=== PATIENT | male | born 1945 | race Caucasian/White ===

== ENCOUNTER 2017-08-06 10:51 | Inpatient (IN) | payer MEDICARE ==
[2017-08-06 11:02] VITALS: BMI 29.9
[2017-08-06] MEDS ORDERED: Iohexol 240 (50 ml) PO ONE (12:31)
[2017-08-06] MEDS ORDERED: Morphine 4 MG/ML VIAL IV ONE (12:31)
[2017-08-06 12:50] LABS: SQUAMOUS EPITHIAL < 1 /hpf (0-5); URINE BILIRUBIN NEGATIVE (NEGATIVE); URINE BLOOD NEGATIVE (NEGATIVE); URINE CLARITY CLEAR (Clear); URINE COLOR YELLOW (YELLOW); URINE GLUCOSE (UA) NEG (Normal); URINE LEUKOCYTE ESTERASE NEG Leu/uL (Negative); URINE NITRATE NEGATIVE (NEGATIVE); URINE PROTEIN NEGATIVE (NEGATIVE); URINE UROBILINOGEN 0.2-1.0 mg/dL (0.2-1.0)
--- NOTE | 2017-08-06 13:06 | ED PDOC ---
HPI: Abdomen Time Seen by Provider: 08/06/17 11:00 Chief Complaint (Nursing): Abdominal Pain Chief Complaint (Provider): Abdominal Pain History Per: Patient History/Exam Limitations: no limitations Onset/Duration Of Symptoms: Days (x 3) Current Symptoms Are (Timing): Still Present Additional Complaint(s): Aniceto is a 72 y/o male who was sent to the ED by Dr. Looney for evaluation of RLQ pain for the past 3 days to rule out appendicitis. Patient denies fever, vomiting, or diarrhea. PMD: Andrei Neri Past Medical History Reviewed: Historical Data, Nursing Documentation, Vital Signs Vital Signs: Last Vital Signs Temp 98.7 F 08/10/17 16:19 Pulse 86 08/10/17 21:04 Resp 20 08/10/17 16:19 BP 138/75 08/10/17 21:04 Pulse Ox 97 08/10/17 16:19 - Medical History PMH: HTN - Surgical History Surgical History: No Surg Hx - Family History Family History: States: Unknown Family Hx - Social History Current smoker - smoking cessation education provided: No Alcohol: None Drugs: Denies - Home Medications Home Medications: Ambulatory Orders Medication Instructions Recorded Aspirin [Ecotrin] 81 mg PO DAILY 08/06/17 Atorvastatin [Lipitor] 40 mg PO HS 08/06/17 Cholecalciferol (Vitamin D3) 2,000 unit PO DAILY 08/06/17 [Vitamin D3] Lisinopril [Zestril] 10 mg PO BID 08/06/17 Magnesium Oxide [Magnesium] 250 mg PO DAILY 08/06/17 Metoprolol Tartrate [Lopressor] 12.5 mg PO Q12 08/06/17 [place]-3 Fatty Acids/Fish Oil 1 cap PO DAILY 08/06/17 [[place]-3 1,000 mg Softgel] Prazosin HCl [Minipress] 1 mg PO HS 08/06/17 Ubidecarenone/Vit E/Vit E Mix 100 mg PO DAILY 08/06/17 [Co-Enzyme Q10 100 mg Softgel] amLODIPine [Norvasc] 5 mg PO DAILY 08/06/17 - Allergies Allergies/Adverse Reactions: Allergies Allergy/AdvReac Type Severity Reaction Status Date / Time No Known Allergies Allergy Verified 08/06/17 11:31 Review of Systems ROS Statement: Except As Marked, All Systems Reviewed And Found Negative Constitutional: Negative for: Fever Gastrointestinal: Positive for: Abdominal Pain (RLQ). Negative for: Vomiting, Diarrhea Physical Exam - Reviewed Nursing Documentation Reviewed: Yes Vital Signs Reviewed: Yes - Physical Exam Appears: Positive for: Well, No Acute Distress Skin: Positive for: Normal Color, Warm, Dry Eye Exam: Positive for: Normal appearance Cardiovascular/Chest: Positive for: Regular Rate, Rhythm. Negative for: Murmur Respiratory: Positive for: Normal Breath Sounds. Negative for: Respiratory Distress Gastrointestinal/Abdominal: Positive for: Soft, Tenderness (RLQ) Extremity: Positive for: Normal ROM. Negative for: Pedal Edema, Deformity Neurologic/Psych: Positive for: Alert, Oriented. Negative for: Motor/Sensory Deficits - Laboratory Results Result Diagrams: 08/10/17 05:20 08/10/17 05:20 - ECG O2 Sat by Pulse Oximetry: 97 (RA) Pulse Ox Interpretation: Normal Medical Decision Making Medical Decision Making: Time: 12:11 Initial Impression: Abdominal pain, rule out appendicitis Initial Plan: --CT Abdomen & Pelvis PO & IV Contrast --CMP --CBC --Morphine --Omnipaque --Urine C&S --Urinalysis Time: 17:30 Patient to be signed out to Dr. Villarreal, pending CT scan. Scribe Attestation: Documented by Fermin Enrique and Cory Colvin, acting as scribes for Ramiro Antonio MD Provider Scribe Attestation: All medical record entries made by the Scribe were at my direction and personally dictated by me. I have reviewed the chart and agree that the record accurately reflects my personal performance of the history, physical exam, medical decision making, and the department course for this patient. I have also personally directed, reviewed, and agree with the discharge instructions and disposition. Disposition - Clinical Impression Clinical Impression: Segmental colitis - Patient ED Disposition Is Patient to be Admitted: Transfer of Care - Disposition Disposition: Transfer of Care Disposition Time: 17:00 Condition: STABLE Patient Signed Over To: Nora Villarreal
[2017-08-06 13:11] LABS: BASO # 0.1 K/uL (0.0-0.2); BASO % 0.5 % (0.0-2.0); EOS # 0.1 K/uL (0.0-0.7); EOS % 0.3 % (0.0-4.0); HEMOGLOBIN 15.1 g/dL (12.0-18.0); LYMPH # 1.7 K/uL (1.0-4.3); LYMPH % 10.2 % (20.0-40.0); MEAN CELL VOLUME 95.4 fl (80.0-94.0); MEAN CORPUSCULAR HGB CONC 33.5 g/dL (33.0-37.0); MEAN PLATELET VOLUME 7.6 fl (7.2-11.7); MONO # 1.4 K/uL (0.0-0.8); MONO % 8.3 % (0.0-10.0); NEUT # 13.2 K/uL (1.8-7.0); NEUT % 80.7 % (50.0-75.0); RBC 4.72 Mil/uL (4.40-5.90); RED CELL DISTRIBUTION WIDTH 14.3 % (11.5-14.5); WHITE BLOOD COUNT 16.3 K/uL (4.8-10.8)
[2017-08-06 13:16] LABS: BLOOD UREA NITROGEN 13 mg/dl (9-20); GFR AFRICAN-AMERICAN > 60; GFR NON-AFRICAN AMERICAN > 60
[2017-08-06 13:17] LABS: ALB/GLOB RATIO 1.3 (1.0-2.1); ALBUMIN 4.6 g/dL (3.5-5.0); ALT/SGPT 36 U/L (21-72); AST/SGOT 33 U/L (17-59); CALCIUM 9.6 mg/dL (8.4-10.2)
[2017-08-06] MEDS ORDERED: Sodium Chloride 0.9% 100 ML ONE (15:15)
[2017-08-06] MEDS ORDERED: Iohexol 300 100 ML IJ ONE (15:15)
[2017-08-06] MEDS ORDERED: Iohexol 240 (50 ml) ONE (15:22)
[2017-08-06] MEDS ORDERED: Morphine 4 MG/ML VIAL ONE (15:23)
[2017-08-06] MEDS ORDERED: Sodium Chloride 0.9% 1,000 ML IV STA (16:57)
--- NOTE | 2017-08-06 17:44 | ED PDOC ---
- Laboratory Results Result Diagrams: 08/06/17 13:00 08/06/17 13:00 - ECG O2 Sat by Pulse Oximetry: 97 (RA) Pulse Ox Interpretation: Normal Medical Decision Making Medical Decision Making: Time: 17:30 Patient was signed out to me by Dr. Antonio, pending CT scan. Accession No. : [id number] Patient Name / ID : KOFFI TEJADA / [id number] Exam Date : 08/06/2017 17:23:43 ( Approved ) Study Comment : Sex / Age : M / 72Y Creator : Kodak Conner MD Dictator : Kodak Conner MD [employer] Attendant : Clerical Supervisor : Kodak Conner MD Approver2 : Report Date : 08/06/2017 18:35:51 My Comment : PROCEDURE: CT Abdomen and Pelvis with contrast HISTORY: rlq abd pain COMPARISON: None. TECHNIQUE: Following the intravenous administration of iodinated contrast material, a CT examination of the abdomen and pelvis performed from the domes of the diaphragms to the symphysis pubis with reformatted datasets provided not only axial but also sagittal and coronal planes. Oral contrast was not administered as per referring physician request. Contrast dose: Omnipaque 300, 95 cc Radiation dose: Total exam DLP = 858.85 mGy-cm. This CT exam was performed using one or more of the following dose reduction techniques: Automated exposure control, adjustment of the mA and/or kV according to patient size, and/or use of iterative reconstruction technique. FINDINGS: LOWER THORAX: Limited bibasilar linear atelectasis or fibrosis seen at the right greater than left sides. No acute infiltrate pleural or pericardial effusion noted. LIVER: There several lucencies identified at the dome of the liver too small to characterize. There are also a few noted at the inferior right lobe liver which are similar. No definite intrahepatic biliary duct dilatation. GALLBLADDER AND BILE DUCTS: Unremarkable. PANCREAS: Unremarkable. No gross lesion or ductal dilatation. SPLEEN: Unremarkable. ADRENALS: Unremarkable. No mass. KIDNEYS AND URETERS: Unremarkable. No hydronephrosis. No solid mass. VASCULATURE: Unremarkable. No aortic aneurysm. BOWEL: The stomach is collapsed. There is no evidence of bowel obstruction and there is nonacute sigmoid diverticular disease. There is prominent thickening of the cecum, particularly posteriorly and the appendix fills with oral contrast material and air relatively diffusely. There is borderline thickening of the terminal ileum as well. Mild fluid is seen the right pericolic gutter. A small perforation or abscess is difficult to differentiate from a moderate diverticulum laterally off the upper cecum. Consider focal colitis of infectious or inflammatory etiologies affecting the cecum asymmetrically, even diverticulitis, with appendicitis on likely. LYMPH NODES: Unremarkable. No enlarged lymph nodes. BLADDER: Urinary bladder appears only mildly distended but the wall appears relatively markedly thickened with borderline pericystic reaction. Center possible cystitis with neoplasm not excluded. No radiodense urolithiasis associated. REPRODUCTIVE: Mild prostate gland enlargement. BONES: No acute fracture. OTHER FINDINGS: None. IMPRESSION: Findings suspicious for segmental colitis affecting the cecum asymmetrically with offending appendicitis felt to be unlikely though some sympathetic thickening of the appendix is difficult to completely exclude. Limited perforation of the upper posterior wall the cecum is in question. Versus moderate diverticulum. No prominent free intraperitoneal gas Neoplasm is not excluded. Further clinical correlation is advised. Additional lesser findings as described above. 18:40 Case discussed with FP resident and oral and maxillofacial surgery resident. Scribe Attestation: Documented by Cory Colvin, acting as a scribe for Nora Villarreal MD Provider Scribe Attestation: All medical record entries made by the Scribe were at my direction and personally dictated by me. I have reviewed the chart and agree that the record accurately reflects my personal performance of the history, physical exam, medical decision making, and the department course for this patient. I have also personally directed, reviewed, and agree with the discharge instructions and disposition. Disposition - Clinical Impression Clinical Impression: Segmental colitis - POA Present On Arrival: None - Disposition Disposition: Admitted as In-Patient Disposition Time: 18:45 Condition: STABLE Forms: [employer] (Spanish)
[2017-08-06] MEDS ORDERED: Ciprofloxacin 400mg/200ml D5W 400 MG/200 ML BAG IV STA (18:34)
[2017-08-06] MEDS ORDERED: metroNIDAZOLE 500mg/100ml NS 100 ML IV STA (18:34)
--- NOTE | 2017-08-06 18:37 | CT ---
PROCEDURE: CT Abdomen and Pelvis with contrast HISTORY: rlq abd pain COMPARISON: None. TECHNIQUE: Following the intravenous administration of iodinated contrast material, a CT examination of the abdomen and pelvis performed from the domes of the diaphragms to the symphysis pubis with reformatted datasets provided not only axial but also sagittal and coronal planes. Oral contrast was not administered as per referring physician request. Contrast dose: Omnipaque 300, 95 cc Radiation dose: Total exam DLP = 858.85 mGy-cm. This CT exam was performed using one or more of the following dose reduction techniques: Automated exposure control, adjustment of the mA and/or kV according to patient size, and/or use of iterative reconstruction technique. FINDINGS: LOWER THORAX: Limited bibasilar linear atelectasis or fibrosis seen at the right greater than left sides. No acute infiltrate pleural or pericardial effusion noted. LIVER: There several lucencies identified at the dome of the liver too small to characterize. There are also a few noted at the inferior right lobe liver which are similar. No definite intrahepatic biliary duct dilatation. GALLBLADDER AND BILE DUCTS: Unremarkable. PANCREAS: Unremarkable. No gross lesion or ductal dilatation. SPLEEN: Unremarkable. ADRENALS: Unremarkable. No mass. KIDNEYS AND URETERS: Unremarkable. No hydronephrosis. No solid mass. VASCULATURE: Unremarkable. No aortic aneurysm. BOWEL: The stomach is collapsed. There is no evidence of bowel obstruction and there is nonacute sigmoid diverticular disease. There is prominent thickening of the cecum, particularly posteriorly and the appendix fills with oral contrast material and air relatively diffusely. There is borderline thickening of the terminal ileum as well. Mild fluid is seen the right pericolic gutter. A small perforation or abscess is difficult to differentiate from a moderate diverticulum laterally off the upper cecum. Consider focal colitis of infectious or inflammatory etiologies affecting the cecum asymmetrically, even diverticulitis, with appendicitis on likely. LYMPH NODES: Unremarkable. No enlarged lymph nodes. BLADDER: Urinary bladder appears only mildly distended but the wall appears relatively markedly thickened with borderline pericystic reaction. Center possible cystitis with neoplasm not excluded. No radiodense urolithiasis associated. REPRODUCTIVE: Mild prostate gland enlargement. BONES: No acute fracture. OTHER FINDINGS: None. IMPRESSION: Findings suspicious for segmental colitis affecting the cecum asymmetrically with offending appendicitis felt to be unlikely though some sympathetic thickening of the appendix is difficult to completely exclude. Limited perforation of the upper posterior wall the cecum is in question. Versus moderate diverticulum. No prominent free intraperitoneal gas Neoplasm is not excluded. Further clinical correlation is advised. Additional lesser findings as described above. Findings discussed with Dr. Villarreal 08/06/2017, 6:20 p.m. with written down and read back verification.
[2017-08-06] MEDS ORDERED: metroNIDAZOLE 500mg/100ml NS 100 ML IVPB ONE (19:33)
[2017-08-06] MEDS ORDERED: Ciprofloxacin 400mg/200ml D5W 400 MG/200 ML BAG IVPB ONE (19:33)
[2017-08-06] MEDS ORDERED: PED IVPB SCH (21:00)
[2017-08-06] MEDS ORDERED: CEFTRIAXONE IVPB SCH (21:00)
[2017-08-06] MEDS: Sodium Chloride 0.9% 1,000 ML IV SCH (21:47)
--- NOTE | 2017-08-06 22:11 | CP.PCM.CON ---
<Philippe Sibley - Last Filed: 08/07/17 04:26> History of Present Illness - History of Present Illness History of Present Illness: General Surgery Consult Note- Dr. Medel 72M w/ pmhx of CAD, [place] s/p cardiac stent, diverticulosis, presents to [facility] ED w / worsening RLQ abdominal pain that started in on Friday. During the course in the ED, pt had a fever of 101, which resolved after Acetaminophen. Currently abd pain is significantly better and is only tender to palpation. Pt denies recent sick contacts for foreign travel. Having regular BM. denies nausea, vomiting, diarrhea, chest pain, shortness of breath, numbness/tingling in extremities, changes in urinary habits, BRBPR PMH: Diverticulosis, CAD, [place] OA, b/l carpal tunnel PSH: shoulder surgery, R-hand surgery, sebaceous cyst removal, C-scope 6yrs ago showing diverticulosis and polyps, cardiac stent ALL: NKDA SocialHx: quit smoking > 40 yrs ago Review of Systems - Review of Systems All systems: reviewed and no additional remarkable complaints except - Constitutional Constitutional: As Per HPI Past Patient History - Infectious Disease Hx of Infectious Diseases: None - Past Social History Alcohol: > 2 Drinks/Day - CARDIAC Hx Hypertension: Yes - PSYCHIATRIC Hx Substance Use: No Meds Allergies/Adverse Reactions: Allergies Allergy/AdvReac Type Severity Reaction Status Date / Time No Known Allergies Allergy Verified 08/06/17 11:31 - Medications Medications: Current Medications Amlodipine Besylate (Norvasc) 5 mg PO DAILY [facility] Aspirin (Ecotrin) 81 mg PO DAILY [facility] Atorvastatin Calcium (Lipitor) 40 mg PO HS [facility] Home Med (Ubidecarenone/Vit E/Vit E Mix [Co-Enzyme Q10 100 Mg Softgel]) 100 mg PO DAILY [facility] Sodium Chloride (Sodium Chloride 0.9%) 1,000 mls @ 125 mls/hr IV .Q8H [facility] Stop: 08/07/17 20:47 Last Admin: 08/06/17 21:47 Dose: 125 mls/hr Ciprofloxacin (Cipro 400mg/200ml Dsw) 400 mg in 200 mls @ 200 mls/hr IVPB Q12 [facility] PRN Reason: Protocol Lisinopril (Zestril) 10 mg PO BID [facility] Last Admin: 08/06/17 21:44 Dose: 10 mg Metoprolol Tartrate (Lopressor) 12.5 mg PO Q12 [facility] Last Admin: 08/06/17 21:43 Dose: 12.5 mg Prazosin HCl (Minipress) 1 mg PO HS [facility] Physical Exam - Constitutional Appears: Non-toxic, No Acute Distress - Head Exam Head Exam: ATRAUMATIC - Eye Exam Eye Exam: EOMI. absent: Scleral icterus - ENT Exam ENT Exam: Mucous Membranes Moist - Respiratory Exam Respiratory Exam: NORMAL BREATHING PATTERN. absent: Accessory Muscle Use, Respiratory Distress - Cardiovascular Exam Cardiovascular Exam: +S1, +S2. absent: Bradycardia, Tachycardia - GI/Abdominal Exam GI & Abdominal Exam: Guarding, Soft, Tenderness. absent: Distended, Firm, Pulsatile Mass, Rebound, Rigid Additional comments: Tenderness in RLQ -McBurny, -Rovsing, -Psoas voluntary guarding - Extremities Exam Additional comments: Lipoma on L. Hand +2 Radial pulses b/L - Neurological Exam Neurological exam: Alert, Oriented x3 - Psychiatric Exam Psychiatric exam: Normal Affect - Skin Skin Exam: Intact, Normal Color, Warm Results - Vital Signs Recent Vital Signs: Last Vital Signs Temp 99.2 F 08/06/17 21:25 Pulse 72 08/06/17 21:44 Resp 16 08/06/17 21:25 BP 128/69 08/06/17 21:44 Pulse Ox 95 08/06/17 21:25 - Labs Result Diagrams: 08/06/17 13:00 08/06/17 13:00 Labs: Laboratory Results - last 24 hr 08/06/17 08/06/17 08/06/17 12:30 13:00 13:00 WBC 16.3 H RBC 4.72 Hgb 15.1 Hct 45.0 MCV 95.4 H MCH 32.0 H MCHC 33.5 RDW 14.3 Plt Count 277 MPV 7.6 Neut % (Auto) 80.7 H Lymph % (Auto) 10.2 L [place] % (Auto) 8.3 Eos % (Auto) 0.3 Baso % (Auto) 0.5 Neut # (Auto) 13.2 H Lymph # (Auto) 1.7 [place] # (Auto) 1.4 H Eos # (Auto) 0.1 Baso # (Auto) 0.1 Sodium 139 Potassium 4.1 Chloride 99 Carbon Dioxide 27 Anion Gap 17 BUN 13 Creatinine 0.8 Est GFR ( Amer) > 60 Est GFR (Non-Af Amer) > 60 Random Glucose 106 Calcium 9.6 Total Bilirubin 1.3 AST 33 ALT 36 Alkaline Phosphatase 73 Total Protein 8.3 H Albumin 4.6 Globulin 3.7 Albumin/Globulin Ratio 1.3 Urine Color Yellow Urine Clarity Clear Urine pH 6.0 Ur Specific Forbes 1.016 Urine Protein Negative Urine Glucose (UA) Neg Urine Ketones Negative Urine Blood Negative Urine Nitrate Negative Urine Bilirubin Negative Urine Urobilinogen 0.2-1.0 Ur Leukocyte Esterase Neg Urine RBC (Auto) 2 Urine Microscopic WBC 1 Ur Squamous Epith Cells < 1 Assessment & Plan - Assessment and Plan (Free Text) Assessment: 72M abd pain for 3 days; cecal diverticulitis vs focal colitis Plan: - NPO - IVF/Abx - Pain control - serial abd exams - monitor vitals - AM CBC/CMP - discussed case w/ Dr. Medel surgical attending [facility] PGY1 <Cristóbal Rm - Last Filed: 08/07/17 10:23> History of Present Illness - History of Present Illness History of Present Illness: Patient was seen and examined at the bedside. Agree with resident's note above. Meds - Medications Medications: Current Medications Amlodipine Besylate (Norvasc) 5 mg PO DAILY [facility] Last Admin: 08/07/17 08:50 Dose: 5 mg Aspirin (Ecotrin) 81 mg PO DAILY [facility] Last Admin: 08/07/17 08:50 Dose: 81 mg Atorvastatin Calcium (Lipitor) 40 mg PO HS [facility] Last Admin: 08/06/17 23:57 Dose: 40 mg Enoxaparin Sodium (Lovenox) 40 mg SC DAILY [facility] PRN Reason: Protocol Last Admin: 08/07/17 08:47 Dose: 40 mg Home Med (Ubidecarenone/Vit E/Vit E Mix [Co-Enzyme Q10 100 Mg Softgel]) 100 mg PO DAILY [facility] Hydromorphone HCl (Dilaudid) 1 mg IVP Q4 PRN PRN Reason: Pain, severe (8-10) Sodium Chloride (Sodium Chloride 0.9%) 1,000 mls @ 125 mls/hr IV .Q8H [facility] Stop: 08/07/17 20:47 Last Admin: 08/06/17 21:47 Dose: 125 mls/hr Metronidazole (Flagyl 500mg/100ml Ns) 100 mls @ 100 mls/hr IVPB Q8 [facility] PRN Reason: Protocol Last Admin: 08/07/17 02:44 Dose: 100 mls/hr Sodium Chloride (Sodium Chloride 0.9%) 1,000 mls @ 150 mls/hr IV .Q6H40M [facility] Stop: 08/08/17 02:28 Last Admin: 08/07/17 08:49 Dose: 150 mls/hr Piperacillin Sod/Tazobactam (Sod 3.375 gm/ Sodium Chloride) 100 mls @ 100 mls/ hr IVPB Q6 [facility] PRN Reason: Protocol Lisinopril (Zestril) 10 mg PO BID [facility] Last Admin: 08/07/17 08:48 Dose: 10 mg Metoprolol Tartrate (Lopressor) 12.5 mg PO Q12 [facility] Last Admin: 08/07/17 08:47 Dose: 12.5 mg Prazosin HCl (Minipress) 1 mg PO HS [facility] Last Admin: 08/06/17 23:57 Dose: 1 mg Results - Vital Signs Recent Vital Signs: Last Vital Signs Temp 99.9 F H 08/07/17 08:39 Pulse 109 H 08/07/17 08:50 Resp 20 08/07/17 08:39 BP 132/57 L 08/07/17 08:50 Pulse Ox 99 08/07/17 08:39 - Labs Result Diagrams: 08/07/17 06:00 08/07/17 06:00 Labs: Laboratory Results - last 24 hr 08/06/17 08/06/17 08/06/17 12:30 13:00 13:00 WBC 16.3 H RBC 4.72 Hgb 15.1 Hct 45.0 MCV 95.4 H MCH 32.0 H MCHC 33.5 RDW 14.3 Plt Count 277 MPV 7.6 Neut % (Auto) 80.7 H Lymph % (Auto) 10.2 L [place] % (Auto) 8.3 Eos % (Auto) 0.3 Baso % (Auto) 0.5 Neut # (Auto) 13.2 H Lymph # (Auto) 1.7 [place] # (Auto) 1.4 H Eos # (Auto) 0.1 Baso # (Auto) 0.1 Sodium 139 Potassium 4.1 Chloride 99 Carbon Dioxide 27 Anion Gap 17 BUN 13 Creatinine 0.8 Est GFR ( Amer) > 60 Est GFR (Non-Af Amer) > 60 Random Glucose 106 Calcium 9.6 Total Bilirubin 1.3 AST 33 ALT 36 Alkaline Phosphatase 73 Total Protein 8.3 H Albumin 4.6 Globulin 3.7 Albumin/Globulin Ratio 1.3 Urine Color Yellow Urine Clarity Clear Urine pH 6.0 Ur Specific [place] 1.016 Urine Protein Negative Urine Glucose (UA) Neg Urine Ketones Negative Urine Blood Negative Urine Nitrate Negative Urine Bilirubin Negative Urine Urobilinogen 0.2-1.0 Ur Leukocyte Esterase Neg Urine RBC (Auto) 2 Urine Microscopic WBC 1 Ur Squamous Epith Cells < 1 08/07/17 08/07/17 06:00 06:00 WBC 16.5 H RBC 4.19 L Hgb 13.5 Hct 40.0 MCV 95.5 H MCH 32.3 H MCHC 33.8 RDW 13.8 Plt Count 238 MPV 7.8 Neut % (Auto) 78.5 H Lymph % (Auto) 10.4 L [place] % (Auto) 10.4 H Eos % (Auto) 0.5 Baso % (Auto) 0.2 Neut # (Auto) 13.0 H Lymph # (Auto) 1.7 [place] # (Auto) 1.7 H Eos # (Auto) 0.1 Baso # (Auto) 0.0 Sodium 139 Potassium 3.9 Chloride 100 Carbon Dioxide 26 Anion Gap 17 BUN 13 Creatinine 0.9 Est GFR ( Amer) > 60 Est GFR (Non-Af Amer) > 60 Random Glucose 101 Calcium 9.0 Total Bilirubin 1.9 H AST 27 ALT 32 Alkaline Phosphatase 62 Total Protein 6.9 Albumin 3.8 Globulin 3.1 Albumin/Globulin Ratio 1.2 Urine Color Urine Clarity Urine pH Ur Specific [place] Urine Protein Urine Glucose (UA) Urine Ketones Urine Blood Urine Nitrate Urine Bilirubin Urine Urobilinogen Ur Leukocyte Esterase Urine RBC (Auto) Urine Microscopic WBC Ur Squamous Epith Cells - Imaging and Cardiology CT scan - abdomen Status: Image reviewed by me, Report reviewed by me Assessment & Plan - Assessment and Plan (Free Text) Plan: - Stop Cipro, start Zosyn - Repeat labs in am - Will follow
--- NOTE | 2017-08-06 22:55 | CP.PCM.HP ---
<Con Akins - Last Filed: 08/07/17 02:36> History of Present Illness - History of Present Illness History of Present Illness: 72 YO w/ PMH of CAD, HTN presents to the ED was sent by his PMD for worsening RLQ abdominal pain that has been going on since Friday. Quantifies the pain at a 7/10. Denies any nausea, vomiting or diarrhea. 2 week ago patient had some abdominal pain with diarrhea, but pain was not as severe as this. Pain is aggravated with walking and palpation. Denies any travel history. Currently patient has been having normal soft stools. Admits to having some chills, but did not check his temperature at home. In the ER patient was noted to be febrile. PMH: Diverticulosis, AL s/p stent 9 years ago PSH: Shoulder surgery, C-scope 6yrs ago showing diverticulosis and polyps Allergies : None SH: 17 year smoking history, quit 25 years ago. Social drinker PMD: Dr. Neri, Senior Test Engineer: Dr. Rice Present on Admission - Present on Admission Any Indicators Present on Admission: No Past Patient History - Infectious Disease Hx of Infectious Diseases: None - Past Social History Alcohol: > 2 Drinks/Day - CARDIAC Hx Hypertension: Yes - PSYCHIATRIC Hx Substance Use: No Meds Allergies/Adverse Reactions: Allergies Allergy/AdvReac Type Severity Reaction Status Date / Time No Known Allergies Allergy Verified 08/06/17 11:31 Physical Exam - Constitutional Appears: No Acute Distress - Head Exam Head Exam: NORMAL INSPECTION - Eye Exam Eye Exam: Normal appearance - Respiratory Exam Respiratory Exam: Clear to Auscultation Bilateral, NORMAL BREATHING PATTERN. absent: Rhonchi, Wheezes - Cardiovascular Exam Cardiovascular Exam: REGULAR RHYTHM, +S1, +S2 - GI/Abdominal Exam GI & Abdominal Exam: Normal Bowel Sounds, Soft, Tenderness Additional comments: RLQ TTP, voluntary guarding - Extremities Exam Extremities exam: Positive for: normal inspection. Negative for: calf tenderness - Neurological Exam Neurological exam: Alert, CN II-XII Intact - Skin Skin Exam: Normal Color, Warm Results - Vital Signs Recent Vital Signs: Last Vital Signs Temp 99.2 F 08/06/17 21:25 Pulse 72 08/06/17 21:44 Resp 16 08/06/17 21:25 BP 128/69 08/06/17 21:44 Pulse Ox 95 08/06/17 21:25 - Labs Result Diagrams: 08/06/17 13:00 08/06/17 13:00 Labs: Laboratory Results - last 24 hr 08/06/17 08/06/17 08/06/17 12:30 13:00 13:00 WBC 16.3 H RBC 4.72 Hgb 15.1 Hct 45.0 MCV 95.4 H MCH 32.0 H MCHC 33.5 RDW 14.3 Plt Count 277 MPV 7.6 Neut % (Auto) 80.7 H Lymph % (Auto) 10.2 L [place] % (Auto) 8.3 Eos % (Auto) 0.3 Baso % (Auto) 0.5 Neut # (Auto) 13.2 H Lymph # (Auto) 1.7 [place] # (Auto) 1.4 H Eos # (Auto) 0.1 Baso # (Auto) 0.1 Sodium 139 Potassium 4.1 Chloride 99 Carbon Dioxide 27 Anion Gap 17 BUN 13 Creatinine 0.8 Est GFR ( Amer) > 60 Est GFR (Non-Af Amer) > 60 Random Glucose 106 Calcium 9.6 Total Bilirubin 1.3 AST 33 ALT 36 Alkaline Phosphatase 73 Total Protein 8.3 H Albumin 4.6 Globulin 3.7 Albumin/Globulin Ratio 1.3 Urine Color Yellow Urine Clarity Clear Urine pH 6.0 Ur Specific [place] 1.016 Urine Protein Negative Urine Glucose (UA) Neg Urine Ketones Negative Urine Blood Negative Urine Nitrate Negative Urine Bilirubin Negative Urine Urobilinogen 0.2-1.0 Ur Leukocyte Esterase Neg Urine RBC (Auto) 2 Urine Microscopic WBC 1 Ur Squamous Epith Cells < 1 Assessment & Plan - Assessment and Plan (Free Text) Assessment: 72 YO M w/ PMH of diverticulosis presents with worsening RLQ abdominal pain 1) Abdominal Pain - sepsis secondary to cecal diverticulitis vs colitis - WBC: 16.3, febrile - CT: Most likely secondary to cecal diverticulitis vs colitis. No evidence of appendicitis - Surg consult appreciated - NPO - C/W IV antibiotics, IVF and pain control with meds - F/U with urine culture 2) HTN - C/W with pain meds -3) DVT prophylaxis - Lovenox <Leonardo Nerio A - Last Filed: 08/08/17 06:55> Results - Vital Signs Recent Vital Signs: Last Vital Signs Temp 100 F H 08/08/17 00:19 Pulse 64 08/08/17 00:19 Resp 18 08/08/17 00:19 BP 127/49 L 08/08/17 00:19 Pulse Ox 95 08/08/17 00:19 - Labs Result Diagrams: 08/07/17 06:00 08/08/17 05:00 Labs: Laboratory Results - last 24 hr 08/07/17 08/07/17 08/07/17 06:00 06:00 06:00 WBC 16.5 H RBC 4.19 L Hgb 13.5 Hct 40.0 MCV 95.5 H MCH 32.3 H MCHC 33.8 RDW 13.8 Plt Count 238 MPV 7.8 Neut % (Auto) 78.5 H Lymph % (Auto) 10.4 L [place] % (Auto) 10.4 H Eos % (Auto) 0.5 Baso % (Auto) 0.2 Neut # (Auto) 13.0 H Lymph # (Auto) 1.7 [place] # (Auto) 1.7 H Eos # (Auto) 0.1 Baso # (Auto) 0.0 Sodium 139 Potassium 3.9 Chloride 100 Carbon Dioxide 26 Anion Gap 17 BUN 13 Creatinine 0.9 Est GFR ( Amer) > 60 Est GFR (Non-Af Amer) > 60 Random Glucose 101 Calcium 9.0 Total Bilirubin 1.9 H AST 27 ALT 32 Alkaline Phosphatase 62 Total Protein 6.9 Albumin 3.8 Globulin 3.1 Albumin/Globulin Ratio 1.2 Procalcitonin 0.48 08/08/17 05:00 WBC RBC Hgb Hct MCV MCH MCHC RDW Plt Count MPV Neut % (Auto) Lymph % (Auto) [place] % (Auto) Eos % (Auto) Baso % (Auto) Neut # (Auto) Lymph # (Auto) [place] # (Auto) Eos # (Auto) Baso # (Auto) Sodium 138 Potassium 4.5 Chloride 103 Carbon Dioxide 27 Anion Gap 13 BUN 10 Creatinine 1.0 Est GFR ( Amer) > 60 Est GFR (Non-Af Amer) > 60 Random Glucose 110 Calcium 8.7 Total Bilirubin 1.4 H AST 25 ALT 21 D Alkaline Phosphatase 50 Total Protein 6.3 Albumin 3.2 L Globulin 3.1 Albumin/Globulin Ratio 1.0 Procalcitonin Attending/Attestation - Attestation I have personally seen and examined this patient.: Yes I have fully participated in the care of the patient.: Yes I have reviewed all pertinent clinical information: Yes
[2017-08-07] MEDS ORDERED: metroNIDAZOLE 500mg/100ml NS 100 ML IVPB ONE (02:40)
[2017-08-07] MEDS: Sodium Chloride 0.9% 1,000 ML IV SCH ×4 (02:44→17:52)
[2017-08-07] MEDS: metroNIDAZOLE 500mg/100ml NS 100 ML IVPB SCH ×3 (02:44→17:49)
[2017-08-07 07:30] LABS: BASO % 0.2 % (0.0-2.0); EOS # 0.1 K/uL (0.0-0.7); EOS % 0.5 % (0.0-4.0); HEMOGLOBIN 13.5 g/dL (12.0-18.0); LYMPH # 1.7 K/uL (1.0-4.3); LYMPH % 10.4 % (20.0-40.0); MEAN CELL VOLUME 95.5 fl (80.0-94.0); MEAN CORPUSCULAR HEMOGLOBIN 32.3 pg (27.0-31.0); MEAN CORPUSCULAR HGB CONC 33.8 g/dL (33.0-37.0); MEAN PLATELET VOLUME 7.8 fl (7.2-11.7); MONO # 1.7 K/uL (0.0-0.8); MONO % 10.4 % (0.0-10.0); NEUT % 78.5 % (50.0-75.0); RBC 4.19 Mil/uL (4.40-5.90); RED CELL DISTRIBUTION WIDTH 13.8 % (11.5-14.5); WHITE BLOOD COUNT 16.5 K/uL (4.8-10.8)
[2017-08-07 07:42] LABS: ALBUMIN 3.8 g/dL (3.5-5.0); BLOOD UREA NITROGEN 13 mg/dl (9-20); GFR AFRICAN-AMERICAN > 60; GFR NON-AFRICAN AMERICAN > 60
[2017-08-07 07:43] LABS: ALB/GLOB RATIO 1.2 (1.0-2.1); ALT/SGPT 32 U/L (21-72); AST/SGOT 27 U/L (17-59)
[2017-08-07] MEDS: Enoxaparin 40 mg Syringe SC SCH (08:47)
[2017-08-07] MEDS ORDERED: VIT E PO SCH (09:00)
[2017-08-07] MEDS ORDERED: VIT E MIX PO SCH (09:00)
[2017-08-07] MEDS ORDERED: UBIDECARENONE PO SCH (09:00)
[2017-08-07] MEDS ORDERED: Ciprofloxacin 400mg/200ml D5W 400 MG/200 ML BAG IVPB SCH (09:00)
--- NOTE | 2017-08-07 09:20 | RAD ---
HISTORY: fever COMPARISON: No prior. FINDINGS: LUNGS: No active pulmonary disease. PLEURA: No significant pleural effusion identified, no pneumothorax apparent. CARDIOVASCULAR: Atherosclerotic aortic calcifications. Cardiomediastinal silhouette within normal limits. OSSEOUS STRUCTURES: Degenerative changes. VISUALIZED UPPER ABDOMEN: Retained enteric contrast preceding CT scan of the abdomen pelvis. OTHER FINDINGS: None. IMPRESSION: No active disease.
--- NOTE | 2017-08-07 09:54 | CP.PCM.PN ---
<Jim Cuellar - Last Filed: 08/07/17 17:19> Subjective - Date & Time of Evaluation Date of Evaluation: 08/07/17 Time of Evaluation: 07:25 - Subjective Subjective: The patient was seen and examined this morning bedside. There are no acute events overnight, NAD. The patient reports that he still has RLQ pain but denies nausea, vomiting, diarrhea, or any other complaints. The patient was seen by surgery team. Patient remains NPO Objective - Vital Signs/Intake and Output Vital Signs (last 24 hours): Temp Pulse Resp BP Pulse Ox 99.9 F H 109 H 20 132/57 L 99 08/07/17 08:39 08/07/17 08:50 08/07/17 08:39 08/07/17 08:50 08/07/17 08:39 - Medications Medications: Current Medications Amlodipine Besylate (Norvasc) 5 mg PO DAILY [facility] Last Admin: 08/07/17 08:50 Dose: 5 mg Aspirin (Ecotrin) 81 mg PO DAILY [facility] Last Admin: 08/07/17 08:50 Dose: 81 mg Atorvastatin Calcium (Lipitor) 40 mg PO HS [facility] Last Admin: 08/06/17 23:57 Dose: 40 mg Enoxaparin Sodium (Lovenox) 40 mg SC DAILY [facility] PRN Reason: Protocol Last Admin: 08/07/17 08:47 Dose: 40 mg Home Med (Ubidecarenone/Vit E/Vit E Mix [Co-Enzyme Q10 100 Mg Softgel]) 100 mg PO DAILY [facility] Hydromorphone HCl (Dilaudid) 1 mg IVP Q4 PRN PRN Reason: Pain, severe (8-10) Sodium Chloride (Sodium Chloride 0.9%) 1,000 mls @ 125 mls/hr IV .Q8H [facility] Stop: 08/07/17 20:47 Last Admin: 08/06/17 21:47 Dose: 125 mls/hr Ciprofloxacin (Cipro 400mg/200ml Dsw) 400 mg in 200 mls @ 200 mls/hr IVPB Q12 [facility] PRN Reason: Protocol Metronidazole (Flagyl 500mg/100ml Ns) 100 mls @ 100 mls/hr IVPB Q8 [facility] PRN Reason: Protocol Last Admin: 08/07/17 02:44 Dose: 100 mls/hr Sodium Chloride (Sodium Chloride 0.9%) 1,000 mls @ 150 mls/hr IV .Q6H40M [facility] Stop: 08/08/17 02:28 Last Admin: 08/07/17 08:49 Dose: 150 mls/hr Lisinopril (Zestril) 10 mg PO BID [facility] Last Admin: 08/07/17 08:48 Dose: 10 mg Metoprolol Tartrate (Lopressor) 12.5 mg PO Q12 [facility] Last Admin: 08/07/17 08:47 Dose: 12.5 mg Prazosin HCl (Minipress) 1 mg PO HS [facility] Last Admin: 08/06/17 23:57 Dose: 1 mg - Labs Labs: 08/07/17 06:00 08/07/17 06:00 - Constitutional Appears: No Acute Distress - Head Exam Head Exam: ATRAUMATIC, NORMAL INSPECTION, NORMOCEPHALIC - Eye Exam Eye Exam: Normal appearance - ENT Exam ENT Exam: Mucous Membranes Moist - Neck Exam Neck Exam: Full ROM. absent: Tenderness - Respiratory Exam Respiratory Exam: Clear to Ausculation Bilateral, NORMAL BREATHING PATTERN. absent: Decreased Breath Sounds, Rales, Rhonchi, Wheezes, Respiratory Distress - Cardiovascular Exam Cardiovascular Exam: REGULAR RHYTHM. absent: Tachycardia - GI/Abdominal Exam GI & Abdominal Exam: Guarding, Soft, Tenderness, Normal Bowel Sounds. absent: Distended, Rebound Additional comments: voluntary guarding - Extremities Exam Extremities Exam: absent: Calf Tenderness, Pedal Edema, Tenderness - Back Exam Back Exam: absent: CVA tenderness (L), CVA tenderness (R), rash noted - Neurological Exam Neurological Exam: Alert, Awake, Oriented x3 - Skin Skin Exam: Dry Assessment and Plan - Assessment and Plan (Free Text) Assessment: 72 y/o man w/ pmh of diverticulosis, HTN, CAD s/p stent 9 years ago presents with worsening RLQ abdominal pain Plan: 1. Abdominal Pain - cecal diverticulitis vs. segmental colitis - currently afebrile, WBC 16.5 - CT: Most likely secondary to cecal diverticulitis vs colitis. No evidence of appendicitis - Surgery consulted, Dr. Jim Medel, recommendations appreciated - GI consulted, Dr. Darrel Jenkins - NPO - zosyn 3.375 gm IV Q6h day 0 - metronidazole 500 mg Q8h day 1 - urine culture: no growth - f/u blood culture - f/u CBC, CMP 2. HTN - controlled w/ medication - c/w norvasc 5 mg PO daily, ASA 81 mg PO daily, lisinopril 10 mg PO daily, metoprolol tartrate 12.5 mg PO Q12h, prazosin 1 mg PO HS 3. HLD - c/w atorvastatin 40 mg PO daily 4. DVT prophylaxis - Lovenox <Andrei Rivas - Last Filed: 08/08/17 07:04> Objective - Vital Signs/Intake and Output Vital Signs (last 24 hours): Temp Pulse Resp BP Pulse Ox 100 F H 64 18 127/49 L 95 08/08/17 00:19 08/08/17 00:19 08/08/17 00:19 08/08/17 00:19 08/08/17 00:19 - Medications Medications: Current Medications Amlodipine Besylate (Norvasc) 5 mg PO DAILY [facility] Last Admin: 08/07/17 08:50 Dose: 5 mg Aspirin (Ecotrin) 81 mg PO DAILY [facility] Last Admin: 08/07/17 08:50 Dose: 81 mg Atorvastatin Calcium (Lipitor) 40 mg PO HS [facility] Last Admin: 08/07/17 21:09 Dose: 40 mg Enoxaparin Sodium (Lovenox) 40 mg SC DAILY [facility] PRN Reason: Protocol Last Admin: 08/07/17 08:47 Dose: 40 mg Home Med (Ubidecarenone/Vit E/Vit E Mix [Co-Enzyme Q10 100 Mg Softgel]) 100 mg PO DAILY [facility] Hydromorphone HCl (Dilaudid) 1 mg IVP Q4 PRN PRN Reason: Pain, severe (8-10) Metronidazole (Flagyl 500mg/100ml Ns) 100 mls @ 100 mls/hr IVPB Q8 [facility] PRN Reason: Protocol Last Admin: 08/08/17 00:04 Dose: 100 mls/hr Piperacillin Sod/Tazobactam (Sod 3.375 gm/ Sodium Chloride) 100 mls @ 100 mls/ hr IVPB Q6 [facility] PRN Reason: Protocol Last Admin: 08/08/17 04:22 Dose: 100 mls/hr Lisinopril (Zestril) 10 mg PO BID [facility] Last Admin: 08/07/17 17:54 Dose: 10 mg Metoprolol Tartrate (Lopressor) 12.5 mg PO Q12 [facility] Last Admin: 08/07/17 21:08 Dose: 12.5 mg Prazosin HCl (Minipress) 1 mg PO HS [facility] Last Admin: 08/07/17 21:09 Dose: 1 mg - Labs Labs: 08/08/17 05:00 08/08/17 05:00 Attending/Attestation - Attestation I have personally seen and examined this patient.: Yes I have fully participated in the care of the patient.: Yes I have reviewed all pertinent clinical information, including history, physical exam and plan: Yes
[2017-08-07] MEDS: Piperacillin/Tazobact 3.375 GM in Sodium Chloride 0.9% 100 ML IVPB SCH ×3 (12:45→21:07)
[2017-08-08] MEDS: metroNIDAZOLE 500mg/100ml NS 100 ML IVPB SCH ×3 (00:04→18:05)
[2017-08-08] MEDS: Sodium Chloride 0.9% 1,000 ML IV SCH ×2 (00:04→21:36)
[2017-08-08] MEDS: Piperacillin/Tazobact 3.375 GM in Sodium Chloride 0.9% 100 ML IVPB SCH ×4 (04:22→21:30)
[2017-08-08 06:43] LABS: BASO % 0.1 % (0.0-2.0); EOS # 0.1 K/uL (0.0-0.7); EOS % 0.4 % (0.0-4.0); HEMOGLOBIN 12.3 g/dL (12.0-18.0); LYMPH # 1.8 K/uL (1.0-4.3); LYMPH % 12.6 % (20.0-40.0); MEAN CELL VOLUME 94.8 fl (80.0-94.0); MEAN CORPUSCULAR HGB CONC 33.8 g/dL (33.0-37.0); MEAN PLATELET VOLUME 7.9 fl (7.2-11.7); MONO # 1.3 K/uL (0.0-0.8); MONO % 9.1 % (0.0-10.0); NEUT # 11.2 K/uL (1.8-7.0); NEUT % 77.8 % (50.0-75.0); NRBC % 0.1 % (0.0-0.0); RBC 3.83 Mil/uL (4.40-5.90); RED CELL DISTRIBUTION WIDTH 14.1 % (11.5-14.5); WHITE BLOOD COUNT 14.4 K/uL (4.8-10.8)
[2017-08-08 06:46] LABS: ALBUMIN 3.2 g/dL (3.5-5.0); ALT/SGPT 21 U/L (21-72); AST/SGOT 25 U/L (17-59); BLOOD UREA NITROGEN 10 mg/dl (9-20); CALCIUM 8.7 mg/dL (8.4-10.2); GFR AFRICAN-AMERICAN > 60; GFR NON-AFRICAN AMERICAN > 60
--- NOTE | 2017-08-08 07:48 | CP.PCM.PN ---
<LeftyTarah - Last Filed: 08/08/17 08:05> Subjective - Date & Time of Evaluation Date of Evaluation: 08/08/17 Time of Evaluation: 07:47 - Subjective Subjective: General Surgery Progress Note - Dr. Rm Pt seen and examined at bedside. ALESSANDRA. Admits to one liquid bowel movement overnight. Says he is not getting much sleep as he is uncomfortable in bed and it makes his neck sore. Admits to some ambulation yesterday. States his pain has decreased since yesterday. Denies C/N/V/CP/SOB. Admits to mild fever of 100 early this morning. Objective - Vital Signs/Intake and Output Vital Signs (last 24 hours): Temp Pulse Resp BP Pulse Ox 100 F H 64 18 127/49 L 95 08/08/17 00:19 08/08/17 00:19 08/08/17 00:19 08/08/17 00:19 08/08/17 00:19 - Medications Medications: Current Medications Amlodipine Besylate (Norvasc) 5 mg PO DAILY [facility] Last Admin: 08/07/17 08:50 Dose: 5 mg Aspirin (Ecotrin) 81 mg PO DAILY [facility] Last Admin: 08/07/17 08:50 Dose: 81 mg Atorvastatin Calcium (Lipitor) 40 mg PO HS [facility] Last Admin: 08/07/17 21:09 Dose: 40 mg Enoxaparin Sodium (Lovenox) 40 mg SC DAILY [facility] PRN Reason: Protocol Last Admin: 08/07/17 08:47 Dose: 40 mg Home Med (Ubidecarenone/Vit E/Vit E Mix [Co-Enzyme Q10 100 Mg Softgel]) 100 mg PO DAILY [facility] Hydromorphone HCl (Dilaudid) 1 mg IVP Q4 PRN PRN Reason: Pain, severe (8-10) Metronidazole (Flagyl 500mg/100ml Ns) 100 mls @ 100 mls/hr IVPB Q8 [facility] PRN Reason: Protocol Last Admin: 08/08/17 00:04 Dose: 100 mls/hr Piperacillin Sod/Tazobactam (Sod 3.375 gm/ Sodium Chloride) 100 mls @ 100 mls/ hr IVPB Q6 [facility] PRN Reason: Protocol Last Admin: 08/08/17 04:22 Dose: 100 mls/hr Lisinopril (Zestril) 10 mg PO BID [facility] Last Admin: 08/07/17 17:54 Dose: 10 mg Metoprolol Tartrate (Lopressor) 12.5 mg PO Q12 [facility] Last Admin: 08/07/17 21:08 Dose: 12.5 mg Prazosin HCl (Minipress) 1 mg PO HS [facility] Last Admin: 08/07/17 21:09 Dose: 1 mg - Labs Labs: 08/08/17 05:00 08/08/17 05:00 - Constitutional Appears: Well, Non-toxic, No Acute Distress - Head Exam Head Exam: ATRAUMATIC, NORMAL INSPECTION - Respiratory Exam Respiratory Exam: NORMAL BREATHING PATTERN. absent: Wheezes, Respiratory Distress - GI/Abdominal Exam GI & Abdominal Exam: Distended, Tenderness, Normal Bowel Sounds. absent: Hernia , Mass, Rebound Additional comments: minimal distention RLQ tenderness to palpation, voluntary guarding - Extremities Exam Extremities Exam: Normal Inspection Additional comments: left hand lipoma - Neurological Exam Neurological Exam: Alert, Awake, Oriented x3 - Psychiatric Exam Psychiatric exam: Normal Affect, Normal Mood - Skin Skin Exam: Dry, Intact Assessment and Plan - Assessment and Plan (Free Text) Assessment: 72M with abdominal pain x4 days w/ cecal diverticulitis vs focal colitis Plan: - continue NPO - continue IVF/Abx - continue pain control - monitor vitals, CBC, CMP - discussed case w/ Dr. Rm <Cristóbal Rm - Last Filed: 08/08/17 12:43> Subjective - Date & Time of Evaluation Time of Evaluation: 12:15 - Subjective Subjective: Patient was seen and examined at the bedside. Agree with resident's note above. Objective - Vital Signs/Intake and Output Vital Signs (last 24 hours): Temp Pulse Resp BP Pulse Ox 98.5 F 67 18 137/54 L 94 L 08/08/17 08:03 08/08/17 08:41 08/08/17 08:03 08/08/17 08:41 08/08/17 08:03 - Medications Medications: Current Medications Acetaminophen (Tylenol 325mg Tab) 650 mg PO Q6 PRN PRN Reason: Pain, Mild (1-3) Last Admin: 08/08/17 10:41 Dose: 650 mg Amlodipine Besylate (Norvasc) 5 mg PO DAILY [facility] Last Admin: 08/08/17 08:42 Dose: 5 mg Aspirin (Ecotrin) 81 mg PO DAILY [facility] Last Admin: 08/08/17 08:42 Dose: 81 mg Atorvastatin Calcium (Lipitor) 40 mg PO HS [facility] Last Admin: 08/07/17 21:09 Dose: 40 mg Enoxaparin Sodium (Lovenox) 40 mg SC DAILY [facility] PRN Reason: Protocol Last Admin: 08/08/17 08:42 Dose: 40 mg Home Med (Ubidecarenone/Vit E/Vit E Mix [Co-Enzyme Q10 100 Mg Softgel]) 100 mg PO DAILY [facility] Hydromorphone HCl (Dilaudid) 1 mg IVP Q4 PRN PRN Reason: Pain, severe (8-10) Metronidazole (Flagyl 500mg/100ml Ns) 100 mls @ 100 mls/hr IVPB Q8 [facility] PRN Reason: Protocol Last Admin: 08/08/17 08:42 Dose: 100 mls/hr Piperacillin Sod/Tazobactam (Sod 3.375 gm/ Sodium Chloride) 100 mls @ 100 mls/ hr IVPB Q6 [facility] PRN Reason: Protocol Last Admin: 08/08/17 10:00 Dose: 100 mls/hr Lisinopril (Zestril) 10 mg PO BID [facility] Last Admin: 08/08/17 08:42 Dose: 10 mg Metoprolol Tartrate (Lopressor) 12.5 mg PO Q12 [facility] Last Admin: 08/08/17 08:41 Dose: 12.5 mg Prazosin HCl (Minipress) 1 mg PO HS [facility] Last Admin: 08/07/17 21:09 Dose: 1 mg - Labs Labs: 08/08/17 05:00 08/08/17 05:00 Assessment and Plan - Assessment and Plan (Free Text) Plan: - Start clear liquid diet - IV fluids - Pain control - Continue antibiotics - GI follow up - Repeat labs in am - Out of bed and ambulate - Will follow
[2017-08-08] MEDS: Enoxaparin 40 mg Syringe SC SCH (08:42)
--- NOTE | 2017-08-08 08:59 | CP.PCM.PN ---
<Jim Cuellar - Last Filed: 08/08/17 16:30> Subjective - Date & Time of Evaluation Date of Evaluation: 08/08/17 Time of Evaluation: 07:00 - Subjective Subjective: The patient was seen and examined this morning bedside. There are no acute events overnight, NAD. The patient reports that he still has RLQ pain but denies nausea, vomiting, diarrhea, or any other complaints. The patient was seen by surgery team. Patient had trial of liquid diet and tolerated w/o issue. Objective - Vital Signs/Intake and Output Vital Signs (last 24 hours): Temp Pulse Resp BP Pulse Ox 98.5 F 67 18 137/54 L 94 L 08/08/17 08:03 08/08/17 08:41 08/08/17 08:03 08/08/17 08:41 08/08/17 08:03 - Medications Medications: Current Medications Amlodipine Besylate (Norvasc) 5 mg PO DAILY [facility] Last Admin: 08/08/17 08:42 Dose: 5 mg Aspirin (Ecotrin) 81 mg PO DAILY [facility] Last Admin: 08/08/17 08:42 Dose: 81 mg Atorvastatin Calcium (Lipitor) 40 mg PO HS [facility] Last Admin: 08/07/17 21:09 Dose: 40 mg Enoxaparin Sodium (Lovenox) 40 mg SC DAILY [facility] PRN Reason: Protocol Last Admin: 08/08/17 08:42 Dose: 40 mg Home Med (Ubidecarenone/Vit E/Vit E Mix [Co-Enzyme Q10 100 Mg Softgel]) 100 mg PO DAILY [facility] Hydromorphone HCl (Dilaudid) 1 mg IVP Q4 PRN PRN Reason: Pain, severe (8-10) Metronidazole (Flagyl 500mg/100ml Ns) 100 mls @ 100 mls/hr IVPB Q8 [facility] PRN Reason: Protocol Last Admin: 08/08/17 08:42 Dose: 100 mls/hr Piperacillin Sod/Tazobactam (Sod 3.375 gm/ Sodium Chloride) 100 mls @ 100 mls/ hr IVPB Q6 [facility] PRN Reason: Protocol Last Admin: 08/08/17 04:22 Dose: 100 mls/hr Lisinopril (Zestril) 10 mg PO BID [facility] Last Admin: 08/08/17 08:42 Dose: 10 mg Metoprolol Tartrate (Lopressor) 12.5 mg PO Q12 [facility] Last Admin: 08/08/17 08:41 Dose: 12.5 mg Prazosin HCl (Minipress) 1 mg PO HS [facility] Last Admin: 08/07/17 21:09 Dose: 1 mg - Labs Labs: 08/08/17 05:00 08/08/17 05:00 - Constitutional Appears: Non-toxic, No Acute Distress - Head Exam Head Exam: ATRAUMATIC, NORMAL INSPECTION, NORMOCEPHALIC - Eye Exam Eye Exam: Normal appearance - ENT Exam ENT Exam: Mucous Membranes Moist - Neck Exam Neck Exam: Full ROM. absent: Tenderness - Respiratory Exam Respiratory Exam: Clear to Ausculation Bilateral. absent: Decreased Breath Sounds, Rales, Rhonchi, Wheezes, Respiratory Distress - Cardiovascular Exam Cardiovascular Exam: REGULAR RHYTHM. absent: Tachycardia - GI/Abdominal Exam GI & Abdominal Exam: Soft, Tenderness, Normal Bowel Sounds. absent: Distended, Rigid, Rebound Additional comments: voluntary guarding - Extremities Exam Extremities Exam: absent: Calf Tenderness, Pedal Edema, Tenderness - Neurological Exam Neurological Exam: Alert, Awake, Oriented x3 - Skin Skin Exam: Dry, Intact, Normal Color, Warm Assessment and Plan - Assessment and Plan (Free Text) Assessment: 72 y/o man w/ pmh of diverticulosis, HTN, CAD s/p stent 9 years ago presents with worsening RLQ abdominal pain Plan: 1. Abdominal Pain - cecal diverticulitis vs. segmental colitis - currently afebrile, WBC 14.4 - CBC: 14.4>12.3/36.3<225 - CMP: 138/4.5, 103/27, 10/1.0, glucose 110, AST 25, ALT 21, alk phos 50 - procalcitonin: 0.48 - CT: Most likely secondary to cecal diverticulitis vs colitis. No evidence of appendicitis - Surgery consulted, Dr. Jim Medel, recommendations appreciated - GI consulted, Dr. Darrel Jenkins - liquid diet - zosyn 3.375 gm IV Q6h day 1 - metronidazole 500 mg Q8h day 2 - start probiotic 1 cap PO BID - urine culture: no growth - blood culture: no growth 2. HTN - controlled w/ medication - c/w norvasc 5 mg PO daily, ASA 81 mg PO daily, lisinopril 10 mg PO daily, metoprolol tartrate 12.5 mg PO Q12h, prazosin 1 mg PO HS 3. HLD - c/w atorvastatin 40 mg PO daily 4. Prophylactic measures - DVT: Lovenox 40 mg SC daily <Andrei Rivas - Last Filed: 08/11/17 06:54> Objective - Vital Signs/Intake and Output Vital Signs (last 24 hours): Temp Pulse Resp BP Pulse Ox 99.1 F 85 20 130/82 96 08/10/17 23:52 08/10/17 23:52 08/10/17 23:52 08/10/17 23:52 08/10/17 23:52 - Medications Medications: Current Medications Acetaminophen (Tylenol 325mg Tab) 650 mg PO Q6 PRN PRN Reason: Pain, Mild (1-3) Last Admin: 08/08/17 10:41 Dose: 650 mg Amlodipine Besylate (Norvasc) 5 mg PO DAILY [facility] Last Admin: 08/10/17 09:00 Dose: 5 mg Aspirin (Ecotrin) 81 mg PO DAILY [facility] Last Admin: 08/10/17 09:01 Dose: 81 mg Atorvastatin Calcium (Lipitor) 40 mg PO HS [facility] Last Admin: 08/10/17 21:04 Dose: 40 mg Enoxaparin Sodium (Lovenox) 40 mg SC DAILY [facility] PRN Reason: Protocol Last Admin: 08/10/17 09:01 Dose: 40 mg Home Med (Ubidecarenone/Vit E/Vit E Mix [Co-Enzyme Q10 100 Mg Softgel]) 100 mg PO DAILY [facility] Hydromorphone HCl (Dilaudid) 1 mg IVP Q4 PRN PRN Reason: Pain, severe (8-10) Last Admin: 08/08/17 21:27 Dose: 1 mg Metronidazole (Flagyl 500mg/100ml Ns) 100 mls @ 100 mls/hr IVPB Q8 [facility] PRN Reason: Protocol Last Admin: 08/11/17 00:42 Dose: 100 mls/hr Piperacillin Sod/Tazobactam (Sod 3.375 gm/ Sodium Chloride) 100 mls @ 100 mls/ hr IVPB Q6 [facility] PRN Reason: Protocol Last Admin: 08/11/17 04:07 Dose: 100 mls/hr Lactobacillus Acidophilus (Bacid Acidophilus) 1 cap PO BID [facility] Last Admin: 08/10/17 16:20 Dose: 1 cap Lisinopril (Zestril) 10 mg PO BID [facility] Last Admin: 08/10/17 16:20 Dose: 10 mg Metoprolol Tartrate (Lopressor) 12.5 mg PO Q12 [facility] Last Admin: 08/10/17 21:04 Dose: 12.5 mg Prazosin HCl (Minipress) 1 mg PO HS [facility] Last Admin: 08/10/17 21:04 Dose: 1 mg - Labs Labs: 08/10/17 05:20 08/10/17 05:20 Attending/Attestation - Attestation I have personally seen and examined this patient.: Yes I have fully participated in the care of the patient.: Yes I have reviewed all pertinent clinical information, including history, physical exam and plan: Yes
[2017-08-08] MEDS: Lactobacillus Acidophilus 500 MU Cap PO SCH (17:10)
--- NOTE | 2017-08-08 23:14 | DS ---
REFERRED BY: Bobby Looney MD HISTORY OF PRESENT ILLNESS: A very pleasant 72-year-old gentleman who started having right lower quadrant pain, discomfort on Friday, progressed Friday and into Friday morning when he went to see Dr. Rivas as an outpatient who referred him to the Emergency Room for possible appendicitis. CAT scan was done, which shows some inflammation on the cecal area and possible microperforation of that area. Surgery eval of the patient did not feel that was an appendicitis. He was started on antibiotics and he was called for GI evaluation. Today, he is sitting up at the edge of the bed. He looks nontoxic and says he feels so much better discomfort in the right lower quadrant. He denies any nausea, vomiting, aphasia or dysphagia. He is afebrile now, but he was on 100 degrees last night. Stated he had a temperature of 101 when came to the ER initially. He is having normal bowel movements without any blood or melena. There has been no loose stools. He has no known drug allergies. At home, he is on multiple antihypertensives as well as Lipitor. PAST MEDICAL HISTORY: Hypertension, history of coronary artery disease, cardiac stents in 2009, history of hyperlipidemia. PAST SURGICAL HISTORY: Noncontributory. FAMILY HISTORY: Noncontributory. SOCIAL HISTORY: No alcohol, tobacco or drug use. PHYSICAL EXAMINATION: GENERAL: Well-developed, well-nourished gentlemen, awake, alert and oriented x3. No acute distress. VITAL SIGNS: Stable. Presently afebrile. ABDOMEN: Soft with good bowel sounds. There is tenderness to palpation in the right lower quadrant, but no palpable masses or lesions. LABORATORY DATA: His initial white count 16.3 it is down to 14.4, rest of the CBC is essentially unremarkable. SMA-7 is within normal limits. LFT's were normal except for bilirubin of 1.4. CAT scan as mentioned already. IMPRESSION AND PLAN: A 72-year-old gentleman with colitis, inflammation of the right lower quadrant cecal area which seems to be clinically better. White count has come down to 14.4. He feels better, but there appeared to be a possibly small perforation there, therefore we will keep him on clear liquids. We will discuss with Surgery whether repeat CAT scan is in order here versus simply monitoring him clinically and advancing his diet as per Surgery. We will follow along with you. Thank you very much for this referral. Tyler Bragg MD
[2017-08-09] MEDS: metroNIDAZOLE 500mg/100ml NS 100 ML IVPB SCH ×3 (00:48→16:11)
[2017-08-09] MEDS: Piperacillin/Tazobact 3.375 GM in Sodium Chloride 0.9% 100 ML IVPB SCH ×4 (04:36→21:13)
--- NOTE | 2017-08-09 07:39 | CP.PCM.PN ---
Subjective - Date & Time of Evaluation Date of Evaluation: 08/09/17 Time of Evaluation: 07:37 - Subjective Subjective: General Surgery: Dr Rm Pt S&E. NAEO. Denies n/v, f/c. Reports abdominal pain significantly improved. Tolerating CLD. No bowel movement yet. Only complaint is continued neck pain. Objective - Vital Signs/Intake and Output Vital Signs (last 24 hours): Temp Pulse Resp BP Pulse Ox 99.3 F 63 18 142/60 95 08/09/17 00:00 08/09/17 00:00 08/09/17 00:00 08/09/17 00:00 08/09/17 00:00 - Medications Medications: Current Medications Acetaminophen (Tylenol 325mg Tab) 650 mg PO Q6 PRN PRN Reason: Pain, Mild (1-3) Last Admin: 08/08/17 10:41 Dose: 650 mg Amlodipine Besylate (Norvasc) 5 mg PO DAILY [facility] Last Admin: 08/08/17 08:42 Dose: 5 mg Aspirin (Ecotrin) 81 mg PO DAILY [facility] Last Admin: 08/08/17 08:42 Dose: 81 mg Atorvastatin Calcium (Lipitor) 40 mg PO HS [facility] Last Admin: 08/08/17 21:31 Dose: 40 mg Enoxaparin Sodium (Lovenox) 40 mg SC DAILY [facility] PRN Reason: Protocol Last Admin: 08/08/17 08:42 Dose: 40 mg Home Med (Ubidecarenone/Vit E/Vit E Mix [Co-Enzyme Q10 100 Mg Softgel]) 100 mg PO DAILY [facility] Hydromorphone HCl (Dilaudid) 1 mg IVP Q4 PRN PRN Reason: Pain, severe (8-10) Last Admin: 08/08/17 21:27 Dose: 1 mg Metronidazole (Flagyl 500mg/100ml Ns) 100 mls @ 100 mls/hr IVPB Q8 [facility] PRN Reason: Protocol Last Admin: 08/09/17 00:48 Dose: 100 mls/hr Piperacillin Sod/Tazobactam (Sod 3.375 gm/ Sodium Chloride) 100 mls @ 100 mls/ hr IVPB Q6 [facility] PRN Reason: Protocol Last Admin: 08/09/17 04:36 Dose: 100 mls/hr Lactobacillus Acidophilus (Bacid Acidophilus) 1 cap PO BID [facility] Last Admin: 08/08/17 17:10 Dose: 1 cap Lisinopril (Zestril) 10 mg PO BID [facility] Last Admin: 08/08/17 17:14 Dose: 10 mg Metoprolol Tartrate (Lopressor) 12.5 mg PO Q12 [facility] Last Admin: 08/08/17 22:23 Dose: 12.5 mg Prazosin HCl (Minipress) 1 mg PO HS [facility] Last Admin: 08/08/17 22:23 Dose: 1 mg - Labs Labs: 08/08/17 05:00 08/08/17 05:00 - Constitutional Appears: Non-toxic, No Acute Distress - Head Exam Head Exam: NORMAL INSPECTION - ENT Exam ENT Exam: Mucous Membranes Moist - Respiratory Exam Respiratory Exam: absent: Accessory Muscle Use, Respiratory Distress - Cardiovascular Exam Cardiovascular Exam: REGULAR RHYTHM. absent: Tachycardia - GI/Abdominal Exam GI & Abdominal Exam: Soft, Tenderness (RLQ but improved significantly). absent : Distended, Firm, Guarding, Rigid - Neurological Exam Neurological Exam: Alert, Awake, Oriented x3 - Psychiatric Exam Psychiatric exam: Normal Affect, Normal Mood - Skin Skin Exam: Normal Color, Warm Assessment and Plan - Assessment and Plan (Free Text) Assessment: 72M with right sided diverticulitis Plan: - cont IV fluids - Pain control - Continue antibiotics - GI follow up - monitor wbc trend - Out of bed and ambulate will d/w Dr Jag Marinelli, PGY3
[2017-08-09 08:28] LABS: BASO % 0.2 % (0.0-2.0); EOS # 0.1 K/uL (0.0-0.7); EOS % 0.8 % (0.0-4.0); LYMPH # 1.7 K/uL (1.0-4.3); LYMPH % 15.4 % (20.0-40.0); MEAN CELL VOLUME 95.1 fl (80.0-94.0); MEAN CORPUSCULAR HEMOGLOBIN 31.9 pg (27.0-31.0); MEAN CORPUSCULAR HGB CONC 33.6 g/dL (33.0-37.0); MEAN PLATELET VOLUME 7.8 fl (7.2-11.7); MONO # 1.1 K/uL (0.0-0.8); MONO % 9.8 % (0.0-10.0); NEUT # 8.2 K/uL (1.8-7.0); NEUT % 73.8 % (50.0-75.0); NRBC % 0.1 % (0.0-0.0); RBC 3.76 Mil/uL (4.40-5.90); RED CELL DISTRIBUTION WIDTH 13.7 % (11.5-14.5); WHITE BLOOD COUNT 11.1 K/uL (4.8-10.8)
[2017-08-09] MEDS: Lactobacillus Acidophilus 500 MU Cap PO SCH ×2 (08:43→16:11)
[2017-08-09] MEDS: Enoxaparin 40 mg Syringe SC SCH (08:44)
[2017-08-09 08:46] LABS: ALBUMIN 3.1 g/dL (3.5-5.0); ALT/SGPT 24 U/L (21-72); AST/SGOT 24 U/L (17-59); BLOOD UREA NITROGEN 5 mg/dl (9-20); CALCIUM 8.4 mg/dL (8.4-10.2); GFR AFRICAN-AMERICAN > 60; GFR NON-AFRICAN AMERICAN > 60
--- NOTE | 2017-08-09 09:24 | CP.PCM.PN ---
Subjective - Date & Time of Evaluation Date of Evaluation: 08/09/17 Time of Evaluation: 08:40 - Subjective Subjective: The patient was seen and examined this morning bedside. There are no acute events overnight, NAD. The patient reports that RLQ pain is much improved. The patient reports 1 brown soft, liquid bowel movement this morning. The patient denies nausea, vomiting, diarrhea, or any other complaints. The patient was seen by surgery team and GI. Patient tolerating PO liquid diet w/o issues Objective - Vital Signs/Intake and Output Vital Signs (last 24 hours): Temp Pulse Resp BP Pulse Ox 98.2 F 59 L 18 132/59 L 96 08/09/17 07:59 08/09/17 07:59 08/09/17 07:59 08/09/17 07:59 08/09/17 07:59 - Medications Medications: Current Medications Acetaminophen (Tylenol 325mg Tab) 650 mg PO Q6 PRN PRN Reason: Pain, Mild (1-3) Last Admin: 08/08/17 10:41 Dose: 650 mg Amlodipine Besylate (Norvasc) 5 mg PO DAILY [facility] Last Admin: 08/09/17 08:44 Dose: 5 mg Aspirin (Ecotrin) 81 mg PO DAILY [facility] Last Admin: 08/09/17 08:44 Dose: 81 mg Atorvastatin Calcium (Lipitor) 40 mg PO HS [facility] Last Admin: 08/08/17 21:31 Dose: 40 mg Enoxaparin Sodium (Lovenox) 40 mg SC DAILY [facility] PRN Reason: Protocol Last Admin: 08/09/17 08:44 Dose: 40 mg Home Med (Ubidecarenone/Vit E/Vit E Mix [Co-Enzyme Q10 100 Mg Softgel]) 100 mg PO DAILY [facility] Hydromorphone HCl (Dilaudid) 1 mg IVP Q4 PRN PRN Reason: Pain, severe (8-10) Last Admin: 08/08/17 21:27 Dose: 1 mg Metronidazole (Flagyl 500mg/100ml Ns) 100 mls @ 100 mls/hr IVPB Q8 [facility] PRN Reason: Protocol Last Admin: 08/09/17 08:44 Dose: 100 mls/hr Piperacillin Sod/Tazobactam (Sod 3.375 gm/ Sodium Chloride) 100 mls @ 100 mls/ hr IVPB Q6 [facility] PRN Reason: Protocol Last Admin: 08/09/17 09:03 Dose: 100 mls/hr Lactobacillus Acidophilus (Bacid Acidophilus) 1 cap PO BID [facility] Last Admin: 08/09/17 08:43 Dose: 1 cap Lisinopril (Zestril) 10 mg PO BID [facility] Last Admin: 08/09/17 08:47 Dose: 10 mg Metoprolol Tartrate (Lopressor) 12.5 mg PO Q12 [facility] Last Admin: 08/09/17 08:43 Dose: 12.5 mg Prazosin HCl (Minipress) 1 mg PO HS [facility] Last Admin: 08/08/17 22:23 Dose: 1 mg - Labs Labs: 08/09/17 06:55 08/09/17 06:55 - Constitutional Appears: No Acute Distress - Head Exam Head Exam: ATRAUMATIC, NORMAL INSPECTION, NORMOCEPHALIC - Eye Exam Eye Exam: Normal appearance - ENT Exam ENT Exam: Mucous Membranes Moist - Respiratory Exam Respiratory Exam: Clear to Ausculation Bilateral. absent: Decreased Breath Sounds, Rales, Rhonchi, Wheezes, Respiratory Distress - Cardiovascular Exam Cardiovascular Exam: REGULAR RHYTHM. absent: Tachycardia - GI/Abdominal Exam GI & Abdominal Exam: Guarding, Soft, Tenderness, Normal Bowel Sounds. absent: Distended, Rebound Additional comments: mild RLQ tenderness, voluntary guarding - Extremities Exam Extremities Exam: absent: Calf Tenderness, Pedal Edema, Tenderness - Neurological Exam Neurological Exam: Alert, Awake, Oriented x3 - Skin Skin Exam: Dry, Intact, Normal Color, Warm Assessment and Plan - Assessment and Plan (Free Text) Assessment: 72 y/o man w/ pmh of diverticulosis, HTN, CAD s/p stent 9 years ago presents with worsening RLQ abdominal pain Plan: 1. Abdominal Pain - diverticulitis - cecal diverticulitis vs. segmental colitis - currently afebrile, WBC 14.4 - CBC: 14.4>12.3/36.3<225 - CMP: 138/4.5, 103/27, 10/1.0, glucose 110, AST 25, ALT 21, alk phos 50 - procalcitonin: 0.48 - CT: Most likely secondary to cecal diverticulitis vs colitis. No evidence of appendicitis - Surgery consulted, Dr. Jim Medel, recommendations appreciated - GI consulted, Dr. Darrel Sotiriadis, recommendations appreciated - liquid diet - zosyn 3.375 gm IV Q6h day 2 - metronidazole 500 mg Q8h day 3 - c/w probiotic 1 cap PO BID - urine culture: no growth - blood culture: no growth 2. Hypokalemia - K+ 3.4 - denies muscle weakness or new pain - K-dur 20 meq PO ordered - f/u bmp 3. HTN - controlled w/ medication - c/w norvasc 5 mg PO daily, ASA 81 mg PO daily, lisinopril 10 mg PO daily, metoprolol tartrate 12.5 mg PO Q12h, prazosin 1 mg PO HS 4. HLD - c/w atorvastatin 40 mg PO daily 5. Prophylactic measures - DVT: Lovenox 40 mg SC daily
[2017-08-09] MEDS ORDERED: Potassium Chloride 20 mEq ER Tab PO ONE (15:49)
[2017-08-09 16:22] VITALS: RESP 20
[2017-08-10] MEDS: metroNIDAZOLE 500mg/100ml NS 100 ML IVPB SCH ×3 (00:01→16:18)
[2017-08-10] MEDS: Piperacillin/Tazobact 3.375 GM in Sodium Chloride 0.9% 100 ML IVPB SCH ×4 (04:34→21:03)
[2017-08-10 07:14] LABS: HEMOGLOBIN 13.3 g/dL (12.0-18.0); MEAN CELL VOLUME 95.2 fl (80.0-94.0); MEAN CORPUSCULAR HEMOGLOBIN 32.7 pg (27.0-31.0); MEAN CORPUSCULAR HGB CONC 34.3 g/dL (33.0-37.0); RBC 4.08 Mil/uL (4.40-5.90); RED CELL DISTRIBUTION WIDTH 13.7 % (11.5-14.5); WHITE BLOOD COUNT 10.8 K/uL (4.8-10.8)
[2017-08-10 07:47] LABS: BLOOD UREA NITROGEN 6 mg/dl (9-20); CALCIUM 8.7 mg/dL (8.4-10.2); GFR AFRICAN-AMERICAN > 60; GFR NON-AFRICAN AMERICAN > 60
[2017-08-10] MEDS: Lactobacillus Acidophilus 500 MU Cap PO SCH ×2 (08:59→16:20)
[2017-08-10] MEDS: Enoxaparin 40 mg Syringe SC SCH (09:01)
--- NOTE | 2017-08-10 09:07 | CP.PCM.PN ---
Subjective - Date & Time of Evaluation Date of Evaluation: 08/10/17 Time of Evaluation: 05:55 - Subjective Subjective: General Surgery: Dr Rm Pt seen and examined at bedside this AM. no acute events overnight. states no abdominal pain. tolerating current diet. Denies n/v, f/c. Objective - Vital Signs/Intake and Output Vital Signs (last 24 hours): Temp Pulse Resp BP Pulse Ox 99.3 F 100 H 20 123/55 L 95 08/09/17 23:43 08/09/17 23:43 08/09/17 23:43 08/09/17 23:43 08/09/17 23:43 - Medications Medications: Current Medications Acetaminophen (Tylenol 325mg Tab) 650 mg PO Q6 PRN PRN Reason: Pain, Mild (1-3) Last Admin: 08/08/17 10:41 Dose: 650 mg Amlodipine Besylate (Norvasc) 5 mg PO DAILY [facility] Last Admin: 08/10/17 09:00 Dose: 5 mg Aspirin (Ecotrin) 81 mg PO DAILY [facility] Last Admin: 08/10/17 09:01 Dose: 81 mg Atorvastatin Calcium (Lipitor) 40 mg PO HS [facility] Last Admin: 08/09/17 21:13 Dose: 40 mg Enoxaparin Sodium (Lovenox) 40 mg SC DAILY [facility] PRN Reason: Protocol Last Admin: 08/10/17 09:01 Dose: 40 mg Home Med (Ubidecarenone/Vit E/Vit E Mix [Co-Enzyme Q10 100 Mg Softgel]) 100 mg PO DAILY [facility] Hydromorphone HCl (Dilaudid) 1 mg IVP Q4 PRN PRN Reason: Pain, severe (8-10) Last Admin: 08/08/17 21:27 Dose: 1 mg Metronidazole (Flagyl 500mg/100ml Ns) 100 mls @ 100 mls/hr IVPB Q8 [facility] PRN Reason: Protocol Last Admin: 08/10/17 09:02 Dose: 100 mls/hr Piperacillin Sod/Tazobactam (Sod 3.375 gm/ Sodium Chloride) 100 mls @ 100 mls/ hr IVPB Q6 [facility] PRN Reason: Protocol Last Admin: 08/10/17 09:02 Dose: 100 mls/hr Lactobacillus Acidophilus (Bacid Acidophilus) 1 cap PO BID [facility] Last Admin: 08/10/17 08:59 Dose: 1 cap Lisinopril (Zestril) 10 mg PO BID [facility] Last Admin: 08/10/17 09:04 Dose: 10 mg Metoprolol Tartrate (Lopressor) 12.5 mg PO Q12 [facility] Last Admin: 08/10/17 09:00 Dose: 12.5 mg Prazosin HCl (Minipress) 1 mg PO HS [facility] Last Admin: 08/09/17 21:13 Dose: 1 mg - Labs Labs: 08/10/17 05:20 08/10/17 05:20 - Constitutional Appears: Non-toxic, No Acute Distress - Head Exam Head Exam: ATRAUMATIC - Eye Exam Eye Exam: EOMI. absent: Scleral icterus - ENT Exam ENT Exam: Mucous Membranes Moist - Respiratory Exam Respiratory Exam: NORMAL BREATHING PATTERN. absent: Accessory Muscle Use, Respiratory Distress - Cardiovascular Exam Cardiovascular Exam: +S1, +S2. absent: Bradycardia, Tachycardia - GI/Abdominal Exam GI & Abdominal Exam: Soft, Tenderness. absent: Distended, Firm, Guarding, Rigid Additional comments: mild tenderness to deep palpation in RLQ - Neurological Exam Neurological Exam: Alert, Awake, Oriented x3 - Psychiatric Exam Psychiatric exam: Normal Affect - Skin Skin Exam: Intact, Warm Assessment and Plan - Assessment and Plan (Free Text) Assessment: 72M with right sided diverticulitis Plan: - cont IV fluids - Pain control - Continue antibiotics - GI follow up - monitor wbc trend - Out of bed and ambulate - further recs per surgical attending PGY1
--- NOTE | 2017-08-10 11:17 | CP.PCM.PN ---
Subjective - Date & Time of Evaluation Date of Evaluation: 08/10/17 Time of Evaluation: 09:20 - Subjective Subjective: Patient seen and examined at bedside. Reports tolerating PO diet, ambulating without difficulty. Reports brown liquid bowel movement this AM despite diet advancement to solid. Denies chest pain, nausea or vomiting. Objective - Vital Signs/Intake and Output Vital Signs (last 24 hours): Temp Pulse Resp BP Pulse Ox 99.4 F 98 H 20 127/70 96 08/10/17 09:52 08/10/17 09:52 08/10/17 09:52 08/10/17 09:52 08/10/17 09:52 - Medications Medications: Current Medications Acetaminophen (Tylenol 325mg Tab) 650 mg PO Q6 PRN PRN Reason: Pain, Mild (1-3) Last Admin: 08/08/17 10:41 Dose: 650 mg Amlodipine Besylate (Norvasc) 5 mg PO DAILY [facility] Last Admin: 08/10/17 09:00 Dose: 5 mg Aspirin (Ecotrin) 81 mg PO DAILY [facility] Last Admin: 08/10/17 09:01 Dose: 81 mg Atorvastatin Calcium (Lipitor) 40 mg PO HS [facility] Last Admin: 08/09/17 21:13 Dose: 40 mg Enoxaparin Sodium (Lovenox) 40 mg SC DAILY [facility] PRN Reason: Protocol Last Admin: 08/10/17 09:01 Dose: 40 mg Home Med (Ubidecarenone/Vit E/Vit E Mix [Co-Enzyme Q10 100 Mg Softgel]) 100 mg PO DAILY [facility] Hydromorphone HCl (Dilaudid) 1 mg IVP Q4 PRN PRN Reason: Pain, severe (8-10) Last Admin: 08/08/17 21:27 Dose: 1 mg Metronidazole (Flagyl 500mg/100ml Ns) 100 mls @ 100 mls/hr IVPB Q8 [facility] PRN Reason: Protocol Last Admin: 08/10/17 09:02 Dose: 100 mls/hr Piperacillin Sod/Tazobactam (Sod 3.375 gm/ Sodium Chloride) 100 mls @ 100 mls/ hr IVPB Q6 [facility] PRN Reason: Protocol Last Admin: 08/10/17 09:02 Dose: 100 mls/hr Lactobacillus Acidophilus (Bacid Acidophilus) 1 cap PO BID [facility] Last Admin: 08/10/17 08:59 Dose: 1 cap Lisinopril (Zestril) 10 mg PO BID [facility] Last Admin: 08/10/17 09:04 Dose: 10 mg Metoprolol Tartrate (Lopressor) 12.5 mg PO Q12 [facility] Last Admin: 08/10/17 09:00 Dose: 12.5 mg Prazosin HCl (Minipress) 1 mg PO HS [facility] Last Admin: 08/09/17 21:13 Dose: 1 mg - Labs Labs: 08/10/17 05:20 08/10/17 05:20 - Constitutional Appears: No Acute Distress - Head Exam Head Exam: ATRAUMATIC, NORMOCEPHALIC - Eye Exam Eye Exam: EOMI - ENT Exam ENT Exam: Mucous Membranes Moist - Neck Exam Neck Exam: Full ROM - Respiratory Exam Respiratory Exam: Clear to Ausculation Bilateral, NORMAL BREATHING PATTERN - Cardiovascular Exam Cardiovascular Exam: REGULAR RHYTHM, +S1, +S2 - GI/Abdominal Exam GI & Abdominal Exam: Soft (obese), Normal Bowel Sounds. absent: Distended, Guarding, Tenderness - Extremities Exam Extremities Exam: Full ROM. absent: Pedal Edema - Neurological Exam Neurological Exam: Alert, Awake, CN II-XII Intact, Oriented x3 - Psychiatric Exam Psychiatric exam: Normal Affect, Normal Mood - Skin Skin Exam: Dry, Normal Color, Warm Assessment and Plan - Assessment and Plan (Free Text) Assessment: 72 yr old M admitted for acute diverticulitis. Patient has diverticulosis, HTN, CAD s/p stent 9 years ago. Plan: 1. Abdominal Pain - diverticulitis -acute, improving - cecal diverticulitis vs. segmental colitis - currently afebrile, WBC improved to 10.8 - CBC: 10.8>13.3/38.8<293 ; BMP: 140/3.7, 102/25, 10/1.0, glucose 99 - procalcitonin: 0.48 - CT: Most likely secondary to cecal diverticulitis vs colitis. No evidence of appendicitis - Surgery consulted, Dr. Jim Medel, recommendations appreciated - GI consulted, Dr. Darrel Jenkins, recommendations appreciated -diet advanced to solid - zosyn 3.375 gm IV Q6h day 4; metronidazole 500 mg Q8h day 4 - continue probiotic 1 cap PO BID - urine culture: no growth; blood culture: no growth 2. Hypokalemia -acute, improved, K+ 3.7 this AM - denies muscle weakness or new pain - s/p K-dur 20 meq PO - bmp wnl this AM 3. HTN - chronic, controlled - continue with Norvasc 5 mg PO daily, ASA 81 mg PO daily, lisinopril 10 mg PO daily, metoprolol tartrate 12.5 mg PO Q12h, prazosin 1 mg PO HS 4. HLD -continue atorvastatin 40 mg PO QHS 5. Prophylactic measures - DVT: Lovenox 40 mg SC daily
[2017-08-11] MEDS: metroNIDAZOLE 500mg/100ml NS 100 ML IVPB SCH ×2 (00:42→08:43)
[2017-08-11] MEDS: Piperacillin/Tazobact 3.375 GM in Sodium Chloride 0.9% 100 ML IVPB SCH ×2 (04:07→10:49)
--- NOTE | 2017-08-11 08:05 | CP.PCM.PN ---
<JasDanette - Last Filed: 08/11/17 08:34> Subjective - Date & Time of Evaluation Date of Evaluation: 08/11/17 Time of Evaluation: 07:35 - Subjective Subjective: General Surgery Dr. Rm Pt S&E @bedside. EO. Pt has no complaints. denies F/C, N/V, abd pain. tolerating low-residue diet. Objective - Vital Signs/Intake and Output Vital Signs (last 24 hours): Temp Pulse Resp BP Pulse Ox 99.1 F 85 20 130/82 96 08/10/17 23:52 08/10/17 23:52 08/10/17 23:52 08/10/17 23:52 08/10/17 23:52 - Medications Medications: Current Medications Acetaminophen (Tylenol 325mg Tab) 650 mg PO Q6 PRN PRN Reason: Pain, Mild (1-3) Last Admin: 08/08/17 10:41 Dose: 650 mg Amlodipine Besylate (Norvasc) 5 mg PO DAILY [facility] Last Admin: 08/10/17 09:00 Dose: 5 mg Aspirin (Ecotrin) 81 mg PO DAILY [facility] Last Admin: 08/10/17 09:01 Dose: 81 mg Atorvastatin Calcium (Lipitor) 40 mg PO HS [facility] Last Admin: 08/10/17 21:04 Dose: 40 mg Enoxaparin Sodium (Lovenox) 40 mg SC DAILY [facility] PRN Reason: Protocol Last Admin: 08/10/17 09:01 Dose: 40 mg Home Med (Ubidecarenone/Vit E/Vit E Mix [Co-Enzyme Q10 100 Mg Softgel]) 100 mg PO DAILY [facility] Hydromorphone HCl (Dilaudid) 1 mg IVP Q4 PRN PRN Reason: Pain, severe (8-10) Last Admin: 08/08/17 21:27 Dose: 1 mg Metronidazole (Flagyl 500mg/100ml Ns) 100 mls @ 100 mls/hr IVPB Q8 [facility] PRN Reason: Protocol Last Admin: 08/11/17 00:42 Dose: 100 mls/hr Piperacillin Sod/Tazobactam (Sod 3.375 gm/ Sodium Chloride) 100 mls @ 100 mls/ hr IVPB Q6 [facility] PRN Reason: Protocol Last Admin: 08/11/17 04:07 Dose: 100 mls/hr Lactobacillus Acidophilus (Bacid Acidophilus) 1 cap PO BID [facility] Last Admin: 08/10/17 16:20 Dose: 1 cap Lisinopril (Zestril) 10 mg PO BID [facility] Last Admin: 08/10/17 16:20 Dose: 10 mg Metoprolol Tartrate (Lopressor) 12.5 mg PO Q12 [facility] Last Admin: 08/10/17 21:04 Dose: 12.5 mg Prazosin HCl (Minipress) 1 mg PO HS [facility] Last Admin: 08/10/17 21:04 Dose: 1 mg - Labs Labs: 08/10/17 05:20 08/10/17 05:20 - Constitutional Appears: Non-toxic, No Acute Distress - Head Exam Head Exam: NORMAL INSPECTION - Eye Exam Eye Exam: Normal appearance - ENT Exam ENT Exam: Mucous Membranes Moist - Respiratory Exam Respiratory Exam: NORMAL BREATHING PATTERN. absent: Accessory Muscle Use, Respiratory Distress - GI/Abdominal Exam GI & Abdominal Exam: Soft. absent: Distended, Tenderness - Extremities Exam Extremities Exam: Normal Inspection - Neurological Exam Neurological Exam: Alert, Awake, Oriented x3 - Psychiatric Exam Psychiatric exam: Normal Affect, Normal Mood - Skin Skin Exam: Dry, Normal Color, Warm Assessment and Plan - Assessment and Plan (Free Text) Assessment: 72 y/o M w/ R-sided diverticulitis - resolved - transition to PO Abx - cont pain management - cont low-residue diet for 2weeks - f/u outpatient colonoscopy in 6-8weeks - encourage OOB to chair/Amb - GI/DVT PPx Pt discussed w/ Dr. Jag Mark DO PGY2 <Cristóbal Rm - Last Filed: 08/11/17 09:57> Subjective - Date & Time of Evaluation Time of Evaluation: 09:35 - Subjective Subjective: Patient was seen and examined at the bedside. Agree with resident's note above. Objective - Vital Signs/Intake and Output Vital Signs (last 24 hours): Temp Pulse Resp BP Pulse Ox 98.1 F 76 20 128/67 94 L 08/11/17 08:09 08/11/17 08:46 08/11/17 08:09 08/11/17 08:46 08/11/17 08:09 - Medications Medications: Current Medications Acetaminophen (Tylenol 325mg Tab) 650 mg PO Q6 PRN PRN Reason: Pain, Mild (1-3) Last Admin: 08/08/17 10:41 Dose: 650 mg Amlodipine Besylate (Norvasc) 5 mg PO DAILY [facility] Last Admin: 08/11/17 08:44 Dose: 5 mg Aspirin (Ecotrin) 81 mg PO DAILY [facility] Last Admin: 08/11/17 08:44 Dose: 81 mg Atorvastatin Calcium (Lipitor) 40 mg PO HS [facility] Last Admin: 08/10/17 21:04 Dose: 40 mg Enoxaparin Sodium (Lovenox) 40 mg SC DAILY [facility] PRN Reason: Protocol Last Admin: 08/11/17 08:44 Dose: 40 mg Home Med (Ubidecarenone/Vit E/Vit E Mix [Co-Enzyme Q10 100 Mg Softgel]) 100 mg PO DAILY [facility] Hydromorphone HCl (Dilaudid) 1 mg IVP Q4 PRN PRN Reason: Pain, severe (8-10) Last Admin: 08/08/17 21:27 Dose: 1 mg Metronidazole (Flagyl 500mg/100ml Ns) 100 mls @ 100 mls/hr IVPB Q8 [facility] PRN Reason: Protocol Last Admin: 08/11/17 08:43 Dose: 100 mls/hr Piperacillin Sod/Tazobactam (Sod 3.375 gm/ Sodium Chloride) 100 mls @ 100 mls/ hr IVPB Q6 [facility] PRN Reason: Protocol Last Admin: 08/11/17 04:07 Dose: 100 mls/hr Lactobacillus Acidophilus (Bacid Acidophilus) 1 cap PO BID [facility] Last Admin: 08/11/17 08:43 Dose: 1 cap Lisinopril (Zestril) 10 mg PO BID [facility] Last Admin: 08/11/17 08:46 Dose: 10 mg Metoprolol Tartrate (Lopressor) 12.5 mg PO Q12 [facility] Last Admin: 08/11/17 08:43 Dose: 12.5 mg Prazosin HCl (Minipress) 1 mg PO HS [facility] Last Admin: 08/10/17 21:04 Dose: 1 mg - Labs Labs: 08/10/17 05:20 08/10/17 05:20 Assessment and Plan - Assessment and Plan (Free Text) Plan: - Clear for discharge from surgical stand point
[2017-08-11 08:10] VITALS: BP 128/67; PULSE 76; TEMP 98.1; O2SAT 94
[2017-08-11] MEDS: Lactobacillus Acidophilus 500 MU Cap PO SCH (08:43)
[2017-08-11] MEDS: Enoxaparin 40 mg Syringe SC SCH (08:44)
--- NOTE | 2017-08-11 10:31 | CP.PCM.DIS ---
<Jim Cuellar - Last Filed: 08/11/17 12:29> Provider - Provider Date of Admission: 08/06/17 18:43 Attending physician: Bobby Looney MD Time Spent in preparation of Discharge (in minutes): 15 Diagnosis - Discharge Diagnosis (1) Segmental colitis Status: Acute Hospital Course - Lab Results Lab Results: Micro Results 08/07/17 06:30 Blood Blood Culture - Preliminary NO GROWTH AFTER 4 DAYS 08/06/17 12:30 Urine,Clean Catch Urine Culture - Final No Growth (<1,000 CFU/ML) Most Recent Lab Values WBC 10.8 K/uL (4.8-10.8) 08/10/17 05:20 RBC 4.08 Mil/uL (4.40-5.90) L 08/10/17 05:20 Hgb 13.3 g/dL (12.0-18.0) 08/10/17 05:20 Hct 38.8 % (35.0-51.0) 08/10/17 05:20 MCV 95.2 fl (80.0-94.0) H 08/10/17 05:20 MCH 32.7 pg (27.0-31.0) H 08/10/17 05:20 MCHC 34.3 g/dL (33.0-37.0) 08/10/17 05:20 RDW 13.7 % (11.5-14.5) 08/10/17 05:20 Plt Count 293 K/uL (130-400) 08/10/17 05:20 MPV 7.8 fl (7.2-11.7) 08/09/17 06:55 Neut % (Auto) 73.8 % (50.0-75.0) 08/09/17 06:55 Lymph % (Auto) 15.4 % (20.0-40.0) L 08/09/17 06:55 [place] % (Auto) 9.8 % (0.0-10.0) 08/09/17 06:55 Eos % (Auto) 0.8 % (0.0-4.0) 08/09/17 06:55 Baso % (Auto) 0.2 % (0.0-2.0) 08/09/17 06:55 Neut # (Auto) 8.2 K/uL (1.8-7.0) H 08/09/17 06:55 Lymph # (Auto) 1.7 K/uL (1.0-4.3) 08/09/17 06:55 [place] # (Auto) 1.1 K/uL (0.0-0.8) H 08/09/17 06:55 Eos # (Auto) 0.1 K/uL (0.0-0.7) 08/09/17 06:55 Baso # (Auto) 0.0 K/uL (0.0-0.2) 08/09/17 06:55 Sodium 140 mmol/l (132-148) 08/10/17 05:20 Potassium 3.7 MMOL/L (3.6-5.0) 08/10/17 05:20 Chloride 102 mmol/L (98-107) 08/10/17 05:20 Carbon Dioxide 25 mmol/L (22-30) 08/10/17 05:20 Anion Gap 17 (10-20) 08/10/17 05:20 BUN 6 mg/dl (9-20) L 08/10/17 05:20 Creatinine 0.8 mg/dl (0.8-1.5) 08/10/17 05:20 Est GFR ( Amer) > 60 08/10/17 05:20 Est GFR (Non-Af Amer) > 60 08/10/17 05:20 Random Glucose 99 mg/dL (75-110) 08/10/17 05:20 Calcium 8.7 mg/dL (8.4-10.2) 08/10/17 05:20 Total Bilirubin 0.7 mg/dl (0.2-1.3) 08/09/17 06:55 AST 24 U/L (17-59) 08/09/17 06:55 ALT 24 U/L (21-72) 08/09/17 06:55 Alkaline Phosphatase 51 U/L (38-126) 08/09/17 06:55 Total Protein 6.2 G/DL (6.3-8.2) L 08/09/17 06:55 Albumin 3.1 g/dL (3.5-5.0) L 08/09/17 06:55 Globulin 3.1 gm/dL (2.2-3.9) 08/09/17 06:55 Albumin/Globulin Ratio 1.0 (1.0-2.1) 08/09/17 06:55 Procalcitonin 0.48 NG/ML (0.19-0.49) 08/07/17 06:00 Urine Color Yellow (YELLOW) 08/06/17 12:30 Urine Clarity Clear (Clear) 08/06/17 12:30 Urine pH 6.0 (5.0-8.0) 08/06/17 12:30 Ur Specific Dalton 1.016 (1.003-1.030) 08/06/17 12:30 Urine Protein Negative mg/dL (NEGATIVE) 08/06/17 12:30 Urine Glucose (UA) Neg mg/dL (Normal) 08/06/17 12:30 Urine Ketones Negative mg/dL (NEGATIVE) 08/06/17 12:30 Urine Blood Negative (NEGATIVE) 08/06/17 12:30 Urine Nitrate Negative (NEGATIVE) 08/06/17 12:30 Urine Bilirubin Negative (NEGATIVE) 08/06/17 12:30 Urine Urobilinogen 0.2-1.0 mg/dL (0.2-1.0) 08/06/17 12:30 Ur Leukocyte Esterase Neg Andry/uL (Negative) 08/06/17 12:30 Urine RBC (Auto) 2 /hpf (0-3) 08/06/17 12:30 Urine Microscopic WBC 1 /hpf (0-5) 08/06/17 12:30 Ur Squamous Epith Cells < 1 /hpf (0-5) 08/06/17 12:30 - Hospital Course Hospital Course: The patient is a 72 y/o man w/ pmh of diverticulosis, HTN, CAD s/p stent 9 years ago presents with worsening RLQ abdominal pain. The patient on admission had elevated BP, elevated WBC, CMP WNL, UA WNL. Abdominal/pelvic CT showed colitis vs diverticulitis and no evidence of appendicitis. Patient treated w/ IV antibiotics and kept NPO. Patient seen by surgery and GI. Patient was conservatively managed. Patient tolerated advance in diet and progressive improvement of pain. The patient has been seen, examined, and deemed medically fit for discharge home. The patient will be discharged w/ PO ciprofloxacin 500 mg Q12h and metronidazole 500 mg Q8h for 2 more days. The patient is to follow up w/ GI and have repeat colonoscopy as outpatient. Patient is to follow up w/ Dr. Rivas in 1 week. Discharge Exam - Head Exam Head Exam: ATRAUMATIC, NORMAL INSPECTION, NORMOCEPHALIC - Eye Exam Eye Exam: Normal appearance - ENT Exam ENT Exam: Mucous Membranes Moist - Neck Exam Neck exam: Full Rom - Respiratory Exam Respiratory Exam: Clear to PA & Lateral, NORMAL BREATHING PATTERN. absent: Decreased Breath Sounds, Rales, Rhonchi, Wheezes, Respiratory Distress - Cardiovascular Exam Cardiovascular Exam: REGULAR RHYTHM. absent: Tachycardia - GI/Abdominal Exam GI & Abdominal Exam: Normal Bowel Sounds, Soft. absent: Distended, Guarding, Rebound, Tenderness - Extremities Exam Extremities exam: normal inspection - Neurological Exam Neurological exam: Alert, CN II-XII Intact, Normal Gait, Oriented x3 - Skin Skin Exam: Dry, Intact, Normal Color, Warm Discharge Plan - Discharge Medications Prescriptions: Ciprofloxacin [Cipro] 500 mg PO Q12 2 Days #4 tab Metronidazole [Flagyl] 500 mg PO Q8 2 Days #6 tablet - Follow Up Plan Condition: STABLE Disposition: HOME/ ROUTINE Instructions: Acute Abdomen (Belly Pain), Adult (DC) Additional Instructions: follow up with primary MD 7-10 days Referrals: Andrei Rivas MD [Staff Provider] - Jim Medel MD [Staff Provider] - Darrel Jenkins MD, PhD [Staff Provider] - <Andrei Rivas - Last Filed: 08/12/17 13:22> Provider - Provider Date of Admission: 08/06/17 18:43 Attending physician: Bobby Looney MD Hospital Course - Lab Results Lab Results: Micro Results 08/07/17 06:30 Blood Blood Culture - Final NO GROWTH AFTER 5 DAYS 08/07/17 06:30 Blood Gram Stain - Final TEST NOT PERFORMED 08/06/17 12:30 Urine,Clean Catch Urine Culture - Final No Growth (<1,000 CFU/ML) Most Recent Lab Values WBC 10.8 K/uL (4.8-10.8) 08/10/17 05:20 RBC 4.08 Mil/uL (4.40-5.90) L 08/10/17 05:20 Hgb 13.3 g/dL (12.0-18.0) 08/10/17 05:20 Hct 38.8 % (35.0-51.0) 08/10/17 05:20 MCV 95.2 fl (80.0-94.0) H 08/10/17 05:20 MCH 32.7 pg (27.0-31.0) H 08/10/17 05:20 MCHC 34.3 g/dL (33.0-37.0) 08/10/17 05:20 RDW 13.7 % (11.5-14.5) 08/10/17 05:20 Plt Count 293 K/uL (130-400) 08/10/17 05:20 MPV 7.8 fl (7.2-11.7) 08/09/17 06:55 Neut % (Auto) 73.8 % (50.0-75.0) 08/09/17 06:55 Lymph % (Auto) 15.4 % (20.0-40.0) L 08/09/17 06:55 [place] % (Auto) 9.8 % (0.0-10.0) 08/09/17 06:55 Eos % (Auto) 0.8 % (0.0-4.0) 08/09/17 06:55 Baso % (Auto) 0.2 % (0.0-2.0) 08/09/17 06:55 Neut # (Auto) 8.2 K/uL (1.8-7.0) H 08/09/17 06:55 Lymph # (Auto) 1.7 K/uL (1.0-4.3) 08/09/17 06:55 [place] # (Auto) 1.1 K/uL (0.0-0.8) H 08/09/17 06:55 Eos # (Auto) 0.1 K/uL (0.0-0.7) 08/09/17 06:55 Baso # (Auto) 0.0 K/uL (0.0-0.2) 08/09/17 06:55 Sodium 140 mmol/l (132-148) 08/10/17 05:20 Potassium 3.7 MMOL/L (3.6-5.0) 08/10/17 05:20 Chloride 102 mmol/L (98-107) 08/10/17 05:20 Carbon Dioxide 25 mmol/L (22-30) 08/10/17 05:20 Anion Gap 17 (10-20) 08/10/17 05:20 BUN 6 mg/dl (9-20) L 08/10/17 05:20 Creatinine 0.8 mg/dl (0.8-1.5) 08/10/17 05:20 Est GFR ( Amer) > 60 08/10/17 05:20 Est GFR (Non-Af Amer) > 60 08/10/17 05:20 Random Glucose 99 mg/dL (75-110) 08/10/17 05:20 Calcium 8.7 mg/dL (8.4-10.2) 08/10/17 05:20 Total Bilirubin 0.7 mg/dl (0.2-1.3) 08/09/17 06:55 AST 24 U/L (17-59) 08/09/17 06:55 ALT 24 U/L (21-72) 08/09/17 06:55 Alkaline Phosphatase 51 U/L (38-126) 08/09/17 06:55 Total Protein 6.2 G/DL (6.3-8.2) L 08/09/17 06:55 Albumin 3.1 g/dL (3.5-5.0) L 08/09/17 06:55 Globulin 3.1 gm/dL (2.2-3.9) 08/09/17 06:55 Albumin/Globulin Ratio 1.0 (1.0-2.1) 08/09/17 06:55 Procalcitonin 0.48 NG/ML (0.19-0.49) 08/07/17 06:00 Urine Color Yellow (YELLOW) 08/06/17 12:30 Urine Clarity Clear (Clear) 08/06/17 12:30 Urine pH 6.0 (5.0-8.0) 08/06/17 12:30 Ur Specific [place] 1.016 (1.003-1.030) 08/06/17 12:30 Urine Protein Negative mg/dL (NEGATIVE) 08/06/17 12:30 Urine Glucose (UA) Neg mg/dL (Normal) 08/06/17 12:30 Urine Ketones Negative mg/dL (NEGATIVE) 08/06/17 12:30 Urine Blood Negative (NEGATIVE) 08/06/17 12:30 Urine Nitrate Negative (NEGATIVE) 08/06/17 12:30 Urine Bilirubin Negative (NEGATIVE) 08/06/17 12:30 Urine Urobilinogen 0.2-1.0 mg/dL (0.2-1.0) 08/06/17 12:30 Ur Leukocyte Esterase Neg Andry/uL (Negative) 08/06/17 12:30 Urine RBC (Auto) 2 /hpf (0-3) 08/06/17 12:30 Urine Microscopic WBC 1 /hpf (0-5) 08/06/17 12:30 Ur Squamous Epith Cells < 1 /hpf (0-5) 08/06/17 12:30 Attending/Attestation - Attestation I have personally seen and examined this patient.: Yes I have fully participated in the care of the patient.: Yes I have reviewed all pertinent clinical information, including history, physical exam and plan: Yes
--- NOTE | 2017-08-11 11:56 | CP.PCM.PN ---
Subjective - Date & Time of Evaluation Date of Evaluation: 08/11/17 Time of Evaluation: 11:55 - Subjective Subjective: feels better Objective - Vital Signs/Intake and Output Vital Signs (last 24 hours): Temp Pulse Resp BP Pulse Ox 98.1 F 76 20 128/67 94 L 08/11/17 08:09 08/11/17 08:46 08/11/17 08:09 08/11/17 08:46 08/11/17 08:09 - Medications Medications: Current Medications Acetaminophen (Tylenol 325mg Tab) 650 mg PO Q6 PRN PRN Reason: Pain, Mild (1-3) Last Admin: 08/08/17 10:41 Dose: 650 mg Amlodipine Besylate (Norvasc) 5 mg PO DAILY [facility] Last Admin: 08/11/17 08:44 Dose: 5 mg Aspirin (Ecotrin) 81 mg PO DAILY [facility] Last Admin: 08/11/17 08:44 Dose: 81 mg Atorvastatin Calcium (Lipitor) 40 mg PO HS [facility] Last Admin: 08/10/17 21:04 Dose: 40 mg Enoxaparin Sodium (Lovenox) 40 mg SC DAILY [facility] PRN Reason: Protocol Last Admin: 08/11/17 08:44 Dose: 40 mg Home Med (Ubidecarenone/Vit E/Vit E Mix [Co-Enzyme Q10 100 Mg Softgel]) 100 mg PO DAILY [facility] Hydromorphone HCl (Dilaudid) 1 mg IVP Q4 PRN PRN Reason: Pain, severe (8-10) Last Admin: 08/08/17 21:27 Dose: 1 mg Metronidazole (Flagyl 500mg/100ml Ns) 100 mls @ 100 mls/hr IVPB Q8 [facility] PRN Reason: Protocol Last Admin: 08/11/17 08:43 Dose: 100 mls/hr Piperacillin Sod/Tazobactam (Sod 3.375 gm/ Sodium Chloride) 100 mls @ 100 mls/ hr IVPB Q6 [facility] PRN Reason: Protocol Last Admin: 08/11/17 10:49 Dose: 100 mls/hr Lactobacillus Acidophilus (Bacid Acidophilus) 1 cap PO BID [facility] Last Admin: 08/11/17 08:43 Dose: 1 cap Lisinopril (Zestril) 10 mg PO BID [facility] Last Admin: 08/11/17 08:46 Dose: 10 mg Metoprolol Tartrate (Lopressor) 12.5 mg PO Q12 [facility] Last Admin: 08/11/17 08:43 Dose: 12.5 mg Prazosin HCl (Minipress) 1 mg PO HS [facility] Last Admin: 08/10/17 21:04 Dose: 1 mg - Labs Labs: 08/10/17 05:20 08/10/17 05:20 - Head Exam Head Exam: NORMOCEPHALIC - Neck Exam Neck Exam: Normal Inspection - Respiratory Exam Respiratory Exam: Clear to Ausculation Bilateral - Cardiovascular Exam Cardiovascular Exam: REGULAR RHYTHM - GI/Abdominal Exam GI & Abdominal Exam: Soft, Normal Bowel Sounds Assessment and Plan - Assessment and Plan (Free Text) Assessment: 72 yo male with with colitis doing well will need colonoscopy as outpatient
== END 2017-08-11 12:40 | disposition home health service (06) | DRG 392 ==
LOC: H.ER 10:51 → H.ERHOLD 18:43 → H.MEDSURG1 08-07 03:09
PROVIDERS: ADMIT Family Medicine; ATTEND Family Medicine
DX: K52.9 Noninfective gastroenteritis and colitis, unspecified (principal); E78.5 Hyperlipidemia, unspecified; I10 Essential (primary) hypertension; I25.10 Atherosclerotic heart disease of native coronary artery without angina pectoris; Z95.5 Presence of coronary angioplasty implant and graft; K57.90 Diverticulosis of intestine, part unspecified, without perforation or abscess without bleeding; I25.2 Old myocardial infarction; Z87.891 Personal history of nicotine dependence; M19.90 Unspecified osteoarthritis, unspecified site; M54.2 Cervicalgia; E87.6 Hypokalemia